=== PATIENT | male | born 1990 | race Caucasian/White ===

== ENCOUNTER → 2023-06-29 13:23 | Outpatient (REF) | payer OTHER, SELFPAY | LOC: PAVMRI 13:23 | PROVIDERS: ATTENDING PHYSICIAN Specialist; FAMILY PHYSICIAN Family Medicine | DX: M25.561 Pain in right knee (principal); M25.562 Pain in left knee | CPT/HCPCS: 73721 ==

== ENCOUNTER 2024-09-19 09:41 | Inpatient (IN) | payer OTHER, SELFPAY ==
[2024-09-16] VITALS (8 sets, daily range): BP systolic 134–155; BP diastolic 90–101; BMI 31.7; BMI 31.0
[2024-09-16 14:08] LABS: Hematocrit 45.1 % (39.0-52.0); Hemoglobin 15.3 g/dL (13.0-18.0); Mean Corp Hgb Conc. 33.9 g/dL (33.0-37.0); Mean Corpuscular Volume 86.1 fL (80.0-94.0); Nucleated Red Blood Cells % 0 % (-); Platelet Count 266 10^3/uL (130-400); Red Cell Dist. Width 12.1 % (11.5-14.5)
[2024-09-16 14:31] LABS: ALT (SGPT) 38 U/L (0-50); AST (SGOT) 26 U/L (17-59); Albumin 4.7 g/dl (3.5-5.0); Alkaline Phosphatase 57 U/L (38-126); Blood Urea Nitrogen 13 mg/dl (9-20); Calcium 9.8 mg/dl (8.4-10.2); Carbon Dioxide 24 mmol/L (22-30); Chloride 107 mmol/L (98-107); Glucose 106 mg/dl (70-99); Potassium 4.7 mmol/L (3.5-5.1); Sodium 138 mmol/L (135-145); Total Protein 7.6 g/dl (6.3-8.2); eGFR > 60.00
--- NOTE | 2024-09-16 16:05 | ED.GENMED ---
History of Present Illness
General
Chief Complaint: Fainting/Passed Out
Time Seen by Provider: 09/16/24 16:05
History of Present Illness
History of Present Illness:
TIME OF INITIAL EVALUATION
- 4:10 PM
REVIEW OF OLD RECORDS
- The patient has a history of migraines, high blood pressure, and GERD
Note:
CHIEF COMPLAINT(S)
- Right-sided weakness and buckling.
HISTORY OF PRESENT ILLNESS
The patient is a 34-year-old male who presented with sudden onset of right-sided weakness and buckling. The event occurred while climbing stairs at home around 1:00 PM. The patient described his whole right side as 'buckling,' causing him to fall,
while his left side remained stable. This episode lasted less than a minute. Upon resolution of the buckling, he immediately called 911, and emergency services arrived within five minutes.
The patient reported feeling unwell for the past week and a half, with symptoms including severe neck pain, feelings of confusion, shortness of breath, sensations of lightheadedness, and three significant migraines accompanied by blurred vision and
numbness. The patient mentioned feeling like he was 'not in my body' and has experienced constant, severe headaches.
The patient denied any prior episodes of weakness or buckling. During evaluation, he demonstrated appropriate strength and coordination, with intact peripheral vision and no focal neurological deficits detected.
ADDITIONAL HISTORY OBTAINED FROM SOURCES OTHER THAN THE PATIENT
Per family members, the patient has been experiencing symptoms but has not exhibited confusion or inappropriate behavior. They noted that he has been complaining more frequently about these symptoms recently. EMS conducted an on-site evaluation and
noted a right bundle branch block on the EKG, although this was deemed unrelated to the current symptoms by the attending physician.
PHYSICAL EXAM
General: Alert, no acute distress.
Skin: Warm, dry.
Head: Normocephalic, atraumatic.
Neck: Supple, trachea midline.
Eye, Ears, Nose, Mouth, and Throat: Oral mucosa moist.
Cardiovascular: Normal peripheral perfusion, no edema.
Respiratory: Respirations are non-labored.
Gastrointestinal: Abdomen nondistended.
Back: Normal range of motion, normal alignment.
Musculoskeletal: Normal range of motion, normal strength.
Neurological: Alert and oriented to person, place, time, and situation, no focal neurological deficit observed. NIHSS equals 0, no field cuts, no sensory deficits, excellent strength in all extremities
Psychiatric: Cooperative, appropriate mood and affect.
PROBLEM LIST
Acute Problems:
- Right-sided weakness and buckling
- Severe neck pain
- Migraine with blurred vision and numbness
- Episodes of lightheadedness and shortness of breath
PLAN
- Obtain a non-contrast CT scan of the brain and a CT angiogram of the head and neck to evaluate blood vessels for any abnormalities.
- Consult neurology for further evaluation and input on the patients symptoms.
- Monitor for any changes in symptoms, particularly regarding neurological status.
DIFFERENTIAL DIAGNOSIS
The Differential Diagnosis includes, in no particular order and is not limited to:
1. Transient Ischemic Attack (TIA)
2. Stroke
3. Migraine with aura
4. Seizure disorder
5. Multiple sclerosis
6. Vestibular disorders
7. Hyperventilation syndrome
8. Cardiac arrhythmias
9. Peripheral neuropathy
10. Conversion disorder
RADIOLOGY
- CT head shows no acute abnormality
EKG
- Sinus 78, normal axis, right bundle branch block with no old to compare
LABS
- CBC, chemistries unremarkable
UPDATE
-SUMMARY OF ENCOUNTER
The patient, a 34-year-old male, presented to the emergency department with a sudden onset of right-sided weakness and buckling while climbing stairs. Emergency medical services were called, and an on-site evaluation revealed a right bundle branch
block unrelated to the current symptoms. Upon evaluation in the ER, the patient reported feeling unwell for the past week and a half, with symptoms including severe neck pain, confusion, shortness of breath, lightheadedness, and migraines with
blurred vision and numbness. A non-contrast CT scan of the brain showed no signs of bleeding or ischemia, making a stroke unlikely. The evaluating physician consulted with a neurologist, Dr. Reza, who recommended a hospital admission for further
evaluation, including an MRI and possibly an EEG to rule out seizure activity, given the patient�s family history of seizures.
DISPOSITION
Admit.
ASSESSMENT
The patient has a sudden onset of right-sided weakness possibly related to transient ischemic events, seizure activity, or complex migraines. A comprehensive neurological workup is warranted.
MANAGEMENT OF THE PATIENTS CARE WAS DISCUSSED WITH
Dr. Kumar, neurologist.
PLAN
Admit the patient to the hospital for overnight observation. Arrange for an MRI and a neurology consult to evaluate and rule out potential neurological causes such as seizures or complex migraines. Consider conducting an EEG if necessary.
MEDICAL DECISION MAKING
- Number and Complexity of Problems Addressed: Acute right-sided weakness, potential neurological event.
- Data:
Category 1: A non-contrast CT scan was performed and showed no acute hemorrhage or ischemia.
Category 2: Consultation with an independent historian revealed a family history of seizures.
Category 3: Neurologist consultation for further evaluation.
- Risk: Admission advised for further investigation. MRI and possible EEG to be conducted for thorough neurological assessment.
DIAGNOSIS
1. Right-sided weakness, unspecified (ICD-10 R53.1).
2. Possible seizure (ICD-10 R56.9).
Past History
Past History
ED Past Medical History: GERD and HTN
Social History
Tobacco: Non-smoker
Alcohol: Occasional
Drug: None
Phy Exam
Physical Exam
Physical Exam:
See HPI
Course
Orders/Labs/Results
Orders:
Orders
09/16/24 13:48
Electrocardiogram (*1) Urgent
Reason for Study: Chest Pain
EKG- Treatment ONCE
09/16/24 13:55
Complete Blood Count/With Diff Urgent
Comprehensive Metabolic Panel Urgent
09/16/24 16:17
CT Head & Neck Angio W/wo IV Urgent
Comment:
Reason For Exam: resolved R weakness
09/16/24 16:24
D-Dimer Urgent
Abnormal Lab Results
09/16/24
13:55
Glucose 106 H mg/dl
(70-99)
09/16/24 13:55
09/16/24 13:55
Vital Signs
Initial and Last Documented VS:
Initial Vital Signs
Temp Pulse Resp BP Pulse Ox
37.1 C 84 20 140/100 97
09/16/24 13:43 09/16/24 13:43 09/16/24 13:43 09/16/24 13:43 09/16/24 13:43
Last Documented Vital Signs
Temp Pulse Resp BP Pulse Ox
37.1 C 83 14 155/92 96
09/16/24 13:43 09/16/24 18:45 09/16/24 18:45 09/16/24 18:08 09/16/24 18:45
*Pulse Oximetry
SaO2: 97
Oxygen Mode of Delivery: Room air
Patient hypoxic: no
*Critical Care Note
Total Time (30-74mins, 75-104mins- exclusive of procedures): Not Applicable
ED Attending Note
-
Portions of this chart may have been created with voice recognition software.� Occasional wrong word or��sound alike� substitutions may have occurred due to the inherent limitations of voice recognition software.
Discharge Plan
Departure
Patient Disposition: Admit
Date of Disposition: 09/16/24
Time of Disposition: 19:02
Presentation/result/management discussed w/ accepting MD/DO: Hospitalist
Patient with high blood pressure during this ER visit?: Yes
Discharge Problem:
Unilateral weakness
Prescriptions:
No Action
Ascorbic Acid/Ascorbate Sodium [Vitamin C 500 Mg Tablet Chew] 500 MG Tab.Chew
500 mg PO DAILY
acetaminophen [Tylenol Extra Strength] 500 MG tablet
1,000 mg PO Q6HPRN PRN (Reason: fever/ pain)
naproxen sodium [Aleve] 220 MG tablet
220 mg PO PRN PRN (Reason: pain)
metoprolol tartrate 50 MG tablet
50 mg PO QPM
methylprednisolone [Medrol (Gabriele)] 4 MG tablets,dose pack
4 tab PO . DIRECT
Patient Comments:
Taper pack started 03/14/2021
cholecalciferol (vitamin D3) [Vitamin D3] 1,000 UNIT capsule
1,000 unit PO DAILY
pantoprazole 40 MG tablet,delayed release (DR/EC)
40 mg PO DAILY Qty: 30 0RF
Referrals:
Puneet Moore DO [Family Provider, Family Practice]
Interventions
Interventions:
*Risk Screen - Suicide Last Done: 09/16/24 13:43
*General Assessment Last Done: 09/16/24 13:43
*Neglect/Abuse Screening Last Done: 09/16/24 13:43
*ED- Fall Risk Assessment Last Done: 09/16/24 16:35
*ED COVID-19 Vaccine History Last Done: 09/16/24 16:35
ED- Neurological Assessment Last Done: 09/16/24 16:37
ED- Cardiac Assessment Last Done: 09/16/24 16:37
Discharge Date and Time
Print Language: SLOVAK
[2024-09-16 16:41] LABS: D-Dimer < 0.27 ug/mlFEU (0.00-0.50)
--- NOTE | 2024-09-16 19:05 | HPS.HSE ---
Family Physician
-
Family Physician: Puneet Moore
Chief Complaint
-
Right-sided weakness
History of Present Illness
This 34-year-old male with past medical history of: Hypertension presenting to the emergency department with sudden onset of right-sided weakness.
Patient reports symptoms began around 1 PM where he suddenly lost ability and his right side and had buckling of the lower right side causing him to fall despite noticing normal strength and stability on the left. He said this lasted about 45
seconds and he called 911 immediately upon resolution. On arrival patient was alert and oriented but reported not feeling well. Complained of severe neck pain, confusion and some shortness of breath lightheadedness as well as migraines, blurred
vision and numbness.
Patient reports history of migraines reports that he is having increasing frequency of migraines over the last few months with the last episode of migraines about 1 week ago. He states that his typical migraines associated with blurry vision and
then development of headache and then numbness and tingling in his upper and lower extremities. Usually his migraines are aborted with NSAIDs. He states that his presentation today was atypical of migraines and he has not been having headache but
reports still feeling lightheaded which he attributes to feeling dehydrated. He has not had any meals today.
Denies any prior surgery or interval episodes. During the initial examination he demonstrated appropriate strength and coordination, normal patient and without focal logical deficits.
In the emergency department he was afebrile, blood pressure was 150/90 with a pulse of 83 and was satting 98% on room air.
CBC was completely unremarkable, electrolytes BUN/creatinine also normal. LFTs were normal.
D-dimer is negative. ECG shows a normal sinus rhythm at rate of 76. 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 CT of the head was negative for any acute
stroke.
Medical History
Past Medical History
Past Medical History: Reports GERD and HTN
Past Surgical History: Reports None
Social History
Tobacco: Non-smoker
Alcohol: Occasional
Drug: None
Family History
Family History: Hypertension
Allergies / Home Medications
Allergies reflects when Allergies were last updated in [facility].
Home Medications with original date entered in [facility]
Allergy/Medication List:
Allergies
Allergy/AdvReac Type Severity Reaction Status Date / Time
No Known Allergies Allergy Verified 09/16/24 13:47
Home Medications
Curcumin 1 cap PO DAILY 09/16/24
ibuprofen 200 mg tablet (Advil) 400 mg PO Q8HPRN PRN mild pain 09/16/24
metoprolol succinate 50 mg tablet,extended release 24 hr (Toprol XL) 50 mg PO DAILY 09/16/24
omega 2-gtd-fme-fish oil 1,000 mg (120 mg-180 mg) capsule (Fish Oil) 1 cap PO DAILY 09/16/24
Review of Systems
-
Constitutional: Reports No Symptoms
EENT: Reports No Symptoms
Respiratory: Reports No Symptoms
Cardiac: Reports No Symptoms
Abdomen/GI: Reports No Symptoms
: Reports No Symptoms
Musculoskeletal: Reports No Symptoms
Skin: Reports No Symptoms
Neurological: Reports Other (See HPI)
Endocrine: Reports No Symptoms
Hematologic/Lymphatic: Reports No Symptoms
Psych: Reports No Symptoms
Physical Exam
Vital Signs
Vital Signs
Temp Pulse Resp BP Pulse Ox
98.7 F 83 14 155/92 96
09/16/24 13:43 09/16/24 18:45 09/16/24 18:45 09/16/24 18:08 09/16/24 18:45
Physical Exam
General: Well Developed, Well Nourished and No Apparent Distress
HEENT: NormoCephalic, Moist mucous membranes and Atraumatic
Respiratory: Clear
Cardiac: S1/S2 and Regular Rhythm; No Murmur or Rub
GI: Soft, Non Tender, Non Distended and Normal Bowel Sounds; No Organomegaly
Rectal: Deferred by Provider
Musculoskeletal: No Clubbing, No Cyanosis and No Edema
Skin: No Rash
Neuro: Nonfocal/grossly intact
Laboratory Results
-
09/16/24 13:55
09/16/24 13:55
Laboratory Results
Total Bilirubin 0.7 mg/dl (0.2-1.3) 09/16/24 13:55
AST 26 U/L (17-59) 09/16/24 13:55
ALT 38 U/L (0-50) 09/16/24 13:55
Alkaline Phosphatase 57 U/L (38-126) 09/16/24 13:55
Data Reviewed
-
CT Scan: Report Reviewed by me
Medical Tests (Nuc Med, Echo, EKG etc): Image Personally Visualized and interpreted
Lab Data: Labs Reviewed by me
Old Records: Reviewed
Impression/Plan
-
IMPRESSION:
34-year-old with past medical history significant for hypertension and GERD who presents to the Emergency Department for very brief episode of right-sided weakness affecting the of the upper and lower extremities lasting for about 45 minutes and
associated with migrainous headache and sensation of confusion. Suspect possibility of seizure with Brian's paralysis versus migraine or stroke. Less likely TIA.
PLAN:
1. Possible Seizure/Migrainous stroke
- admit to tele observation
- check inflammatory markers, tsh, a1c and cardiovascular panel
- EEG
- MRI
- neurochecks q 6 hours for now
- neurology consultation
DVT PPX - SCDs
Code status - full code
[2024-09-16] MEDS: NSS 250 IV (22:07)
[2024-09-17 03:16] VITALS: BP 126/82
[2024-09-17 07:24] LABS: Hematocrit 43.2 % (39.0-52.0); Hemoglobin 14.4 g/dL (13.0-18.0); Mean Corp Hgb Conc. 33.3 g/dL (33.0-37.0); Mean Corpuscular Volume 85.7 fL (80.0-94.0); Platelet Count 258 10^3/uL (130-400); Red Cell Dist. Width 12.2 % (11.5-14.5)
[2024-09-17 07:28] LABS: Blood Urea Nitrogen 12 mg/dl (9-20); Calcium 9.4 mg/dl (8.4-10.2); Carbon Dioxide 25 mmol/L (22-30); Chloride 105 mmol/L (98-107); Estimated Creatinine Clearance 122 ml/min; Glucose 94 mg/dl (70-99); HDL Cholesterol 33 mg/dl; LDL Cholesterol, Calculated 160 mg/dl; Magnesium 2.1 mg/dl (1.6-2.3); Potassium 4.3 mmol/L (3.5-5.1); Sodium 137 mmol/L (135-145); Very Low Density Lipoprotein 51 mg/dl (0-30); eGFR > 60.00
[2024-09-17 07:51] LABS: TSH 2.16 uIU/ml (0.47-4.68)
[2024-09-17] MEDS: TOPROL XL 50 MG PO (09:37)
[2024-09-17 11:00] VITALS: BP 149/97
[2024-09-17 13:00] VITALS: BP 150/87
--- NOTE | 2024-09-17 13:07 | W.PN.HOSP.TC ---
Today's Communication/Plan
-
ativan prn
mri
neuro consult
Assessment / Plan
Assessment / Plan
Physical Exam
General: Well Developed, Well Nourished and No Apparent Distress
HEENT: NormoCephalic, Moist mucous membranes and Atraumatic
Respiratory: Clear
Cardiac: S1/S2 and Regular Rhythm; No Murmur or Rub
GI: Soft, Non Tender, Non Distended and Normal Bowel Sounds; No Organomegaly
Rectal: Deferred by Provider
Musculoskeletal: No Clubbing, No Cyanosis and No Edema
Skin: No Rash
Neuro: Nonfocal/grossly intact
34-year-old with past medical history significant for hypertension and GERD who presents to the Emergency Department for very brief episode of right-sided weakness affecting the of the upper and lower extremities lasting for about 45 minutes and
associated with migrainous headache and sensation of confusion. Suspect possibility of Brian's paralysis versus migraine or stroke.
PLAN:
#Migrainous stroke v Anxiety
#Right sided weakness, resolved
- admit to tele observation
- check inflammatory markers, tsh, a1c and cardiovascular panel
- MRI
- neurochecks q 6 hours for now
- neurology consultation
#Anxiety
-one time .5mg ativan
DVT PPX - SCDs
Code status - full code
Anticipated Discharge: 24 - 48 hours
Subjective/Interval History
-
Date of Service: September 17, 2024
slightly dizzy in the afternoon although acknowledges anxiety; right sided weakness resolved
Objective Data
-
Labs:
Laboratory Results
09/17/24
05:37
WBC 8.3
Hgb 14.4
Hct 43.2
Plt Count 258
Sodium 137
Potassium 4.3
Chloride 105
Carbon Dioxide 25
BUN 12
Creatinine 1.1
Glucose 94
Calcium 9.4
Vital Signs:
Vital Signs
Temp Pulse Resp BP Pulse Ox
97.6 F 80 16 139/88 96
09/17/24 07:00 09/17/24 09:37 09/17/24 07:00 09/17/24 09:37 09/17/24 07:00
I&O
09/16/24 09/17/24 09/18/24
06:59 06:59 06:59
Intake Total 0 / 0
Balance 0 / 0
Review of Systems
-
History Source: Patient
All other systems: Not reviewed unless documented
Data Reviewed
-
CT Scan: Report Reviewed by me
Labs: Labs Reviewed by me
--- NOTE | 2024-09-17 13:17 | PTCARENOTE ---
Pt. is with c/o dizziness/lightheadedness for about 40 min now he reports, while sitting in bed. B/p 150/87 hr 82. Pt. also reports he is slightly anxious. Dr. Armstrong made aware. New orders to follow.
[2024-09-17] MEDS: ATIVAN 0.5 MG PO (13:38)
[2024-09-17] MEDS: MOTRIN 400 MG PO (13:38)
[2024-09-17 15:00] VITALS: BP 141/83
--- NOTE | 2024-09-17 15:09 | CM ---
Addendum entered by Hetal Pepe 09/18/24 08:10:
insurance is non active, message left with [facility]
Original Note:
Patient see at bedside on 4 . Patient stated that he has moved back in with his parents in a split level home and that his fiance has moved in with another roommate. Patient has no DME and his PCP is Dr. Moore, he uses the [facility] in [place].
Patient indicated that he is not sure if his insurance is still in effect due to loss of his job. Patient provided number for [facility] [id number], CM called to admissions and they indicated that they would call back to clarify insurance
coverage. CM will call to [facility] if patient insurance not in place. CM will conttinue to follow for discharge planning needs.
Plan; home with no needs; pending medical treatment plan
[2024-09-17] MEDS: LOW STRENGTH ASPIRIN 324 MG PO (16:32)
[2024-09-17] MEDS: PLAVIX 300 MG PO (16:32)
[2024-09-17] MEDS: LIPITOR 40 MG PO (17:14)
[2024-09-17] MEDS: KLONOPIN 0.5 MG PO (17:47)
--- NOTE | 2024-09-17 18:10 | CON.NEURO ---
Neuro Assessment/Plan
Assessment
MRI brain images reviewed with patient, on DWI and ADC, 2 dots of stroke left high frontal, MCA/MINE SUPERVISOR junction
CTA imgs rev'd, minimal atherosclerosis, no LVO, no aneurysm. Right carotid tortuous, left MINE SUPERVISOR supplied by small left PCOM
HDL 51, LDL 160
34 years man, description is of simple partial seizure, likely symptomatic to tiny strokes seen on MRI. no clear vascular etiology for this stroke.
HTN well controlled, no history of severe longstanding HTN ot explain tortuous carotids
high LDL but minimal atherosclerosis
stroke in young workup would start with
YANIRA rule out (septic) emboli source, PFO. also blood cultures
ESR, CRP, folate, B12
CT chest/abd/pelvis r/o emboli to lung/liver/spleen
ultrasound r/o DVT
needs more outpatient Afib screening
Consultation
Order
Date of Consultation: 09/17/24
Requesting Provider:
Reason for Consult:
Subjective/Objective
Subjective Data
Date of Service: September 17, 2024
from h&p:
This 34-year-old male with past medical history of: Hypertension presenting to the emergency department with sudden onset of right-sided weakness.
Patient reports symptoms began around 1 PM where he suddenly lost ability and his right side and had buckling of the lower right side causing him to fall despite noticing normal strength and stability on the left. He said this lasted about 45
seconds and he called 911 immediately upon resolution. On arrival patient was alert and oriented but reported not feeling well. Complained of severe neck pain, confusion and some shortness of breath lightheadedness as well as migraines, blurred
vision and numbness.
Patient reports history of migraines reports that he is having increasing frequency of migraines over the last few months with the last episode of migraines about 1 week ago. He states that his typical migraines associated with blurry vision and
then development of headache and then numbness and tingling in his upper and lower extremities. Usually his migraines are aborted with NSAIDs. He states that his presentation today was atypical of migraines and he has not been having headache but
reports still feeling lightheaded which he attributes to feeling dehydrated. He has not had any meals today.
he tells me that he had 45 seconds of right sided weakness, numbness, and shaking. He was going up the stairs and fell. presently asymptomatic.
Objective Data
Vital Signs
Temp Pulse Resp BP Pulse Ox
36.9 C 90 16 141/83 96
09/17/24 15:00 09/17/24 15:00 09/17/24 15:00 09/17/24 15:00 09/17/24 15:00
Lab Results
09/17/24 05:37
09/17/24 05:37
Sodium 137 mmol/L (135-145) 09/17/24 05:37
Potassium 4.3 mmol/L (3.5-5.1) 09/17/24 05:37
BUN 12 mg/dl (9-20) 09/17/24 05:37
Glucose 94 mg/dl (70-99) 09/17/24 05:37
Calcium 9.4 mg/dl (8.4-10.2) 09/17/24 05:37
LDL Cholesterol, Calc 160 mg/dl 09/17/24 05:37
Patient Allergies
No Known Allergies Allergy (Verified 09/16/24 13:47)
Physical Exam
-
AAOx3, speech clear, language intact
VFF, EOMI, face symmetric
full strength b/l UE/LE
sensation intact to temp/vib
FNF intact
Medications
-
Active Medications
Generic Name Dose Route Start Last Admin
Trade Name Freq PRN Reason Stop Dose Admin
Atorvastatin Calcium 40 mg 09/17/24 18:00 09/17/24 17:14
Atorvastatin (Lipitor) 40 Mg Tablet PO 10/15/24 17:59 40 mg
QPM KIMBERLY Administration
Bisacodyl 10 mg 09/16/24 21:01
Bisacodyl 10 Mg Rectal Suppository RECTAL 10/14/24 21:00
[id number] PRN
constipation
Clonazepam 0.5 mg 09/17/24 17:26 09/17/24 17:47
Clonazepam 0.5 Mg Tablet PO 10/15/24 19:59 0.5 mg
BID PRN Administration
anxiety
Ibuprofen 400 mg 09/16/24 21:01 09/17/24 13:38
Ibuprofen 400 Mg Tablet PO 10/14/24 21:00 400 mg
Q6HPRN PRN Administration
mild pain
Metoprolol Succinate 50 mg 09/17/24 08:00 09/17/24 09:37
Metoprolol 50 Mg Extended Release Tablet PO 10/15/24 07:59 50 mg
DAILY KIMBERLY Administration
Ondansetron HCl 4 mg 09/16/24 21:01
Ondansetron 4 Mg/2 Ml Vial IV 10/14/24 21:00
Q6HPRN PRN
nausea and vomiting
Polyethylene Glycol 17 grams 09/16/24 21:01
Polyethylene Glycol Powder 17 Grams Packet PO 10/14/24 21:00
DAILYPRN PRN
constipation
Senna/Docusate Sodium 1 tablet 09/16/24 21:01
Docusate W/Senna (Janet-Colace) Tablet PO 10/14/24 21:00
BIDPRN PRN
constipation
Home Medications
�Medication �Instructions �Recorded
Curcumin 1 cap PO DAILY 09/16/24
ibuprofen 200 mg tablet (Advil) 400 mg PO Q8HPRN PRN mild pain 09/16/24
metoprolol succinate 50 mg 50 mg PO DAILY 09/16/24
tablet,extended release 24 hr
(Toprol XL)
omega 6-zws-iql-fish oil 1,000 mg 1 cap PO DAILY 09/16/24
(120 mg-180 mg) capsule (Fish Oil)
clonazepam 0.5 mg tablet 0.5 mg DAILY PRN anxiety 09/17/24
[2024-09-17 18:50] LABS: C-Reactive Protein < 5.00 mg/L (0.0-10.00)
[2024-09-17 19:25] LABS: Ferritin 120.0 ng/ml (17.9-464.0)
[2024-09-17 19:34] VITALS: BP 137/84
[2024-09-17 19:56] LABS: Folate 9.8 ng/ml (2.76-20); Vitamin B12 307 pg/ml (239-931)
[2024-09-17 23:19] VITALS: BP 123/73
[2024-09-18 03:30] VITALS: BP 113/71
[2024-09-18 07:08] VITALS: BP 133/76
[2024-09-18 08:01] LABS: Hematocrit 44.5 % (39.0-52.0); Hemoglobin 14.8 g/dL (13.0-18.0); Mean Corp Hgb Conc. 33.3 g/dL (33.0-37.0); Mean Corpuscular Volume 85.9 fL (80.0-94.0); Platelet Count 258 10^3/uL (130-400); Red Cell Dist. Width 12.2 % (11.5-14.5)
[2024-09-18 08:30] LABS: ALT (SGPT) 32 U/L (0-50); AST (SGOT) 22 U/L (17-59); Albumin 4.2 g/dl (3.5-5.0); Alkaline Phosphatase 49 U/L (38-126); Blood Urea Nitrogen 9 mg/dl (9-20); Calcium 9.1 mg/dl (8.4-10.2); Carbon Dioxide 24 mmol/L (22-30); Chloride 106 mmol/L (98-107); Estimated Creatinine Clearance 122 ml/min; Glucose 97 mg/dl (70-99); Potassium 4.4 mmol/L (3.5-5.1); Sodium 138 mmol/L (135-145); Total Protein 6.7 g/dl (6.3-8.2); eGFR > 60.00
[2024-09-18] MEDS: TOPROL XL 50 MG PO (08:36)
[2024-09-18] MEDS: OMNIPAQUE 50 ML PO (08:40)
--- NOTE | 2024-09-18 08:56 | CON.CAR ---
Consultation
Consultation Request
Date/Time Consultation Requested: 09/17/2024 1700
Date/Time Consultation Performed: 0900
Requesting Provider: Dr. Barrios
Performing Provider: Dr. Julien
Reason for Consultation: CVA evaluate for cardiac source of emboli YANIRA requested
Medical History
-
History of Present Illness:
34-year-old male with a history of hypertension and history of migraines who presented with right sided weakness. MRI shows CVA
.
Patient reportedly had increased frequency of migraines over the last couple months. Typical migraine includes headache, blurry vision and tingling in extremities managed with nitrates. Day of presentation was different than usual migraine.
No history of GI issues or swallowing issues no prior history of problems with anesthesia. No loose teeth or dentures. He however he does have 2 broken teeth which are areas that had previous root canal.
No prior cardiac history.
He has been exercising and does the bike for 45 minutes generally feels well with this he thinks he is a little more tired with activity over the last month. When he is out in the heat mowing the lawn he stops and rests a couple times. No
orthopnea lower extremity edema no lung disease no chest pain
Family history is notable for father having DVTs and factor V Leiden. Patient reports being tested for factor V Leiden in the past. Sounds as if he just had the blood test and did not have full hematology evaluation
.
Head and neck CTA 09/06/2024
NECK CTA:
1. Mild hypoplasia of the cervical segment of the right vertebral artery.
2. Severe tortuosity of the mid cervical segment of the right ICA.
3. Moderate right-sided facet joint arthrosis at C3/C4.
HEAD CTA:
1. No CT evidence for acute intracranial hemorrhage or transcortical infarct.
2. Mild diffuse cerebral and cerebellar volume loss.
3. 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
4. 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
5. 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
.
MRI 09/17/2024
IMPRESSION:
1. TINY ACUTE ISCHEMIC INFARCTS in the SUPERIOR LEFT PARIETAL LOBE.
2. Mild cerebellar volume loss.
3. 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
Past Medical History
Past Medical History: Other
Social History
Tobacco: Non-Smoker
Family History
Family History: Reviewed & Not Pertinent
Allergies / Home Medications
Allergy/AdvReac Type Severity Reaction Status Date / Time
No Known Allergies Allergy Verified 09/16/24 13:47
�Medication �Instructions �Recorded �Confirmed �Type
Curcumin 1 cap PO DAILY 09/16/24 09/16/24 History
ibuprofen 200 mg tablet (Advil) 400 mg PO Q8HPRN PRN mild pain 09/16/24 09/16/24 History
metoprolol succinate 50 mg 50 mg PO DAILY 09/16/24 09/16/24 History
tablet,extended release 24 hr
(Toprol XL)
omega 0-dhm-fhg-fish oil 1,000 mg 1 cap PO DAILY 09/16/24 09/16/24 History
(120 mg-180 mg) capsule (Fish Oil)
clonazepam 0.5 mg tablet 0.5 mg DAILY PRN anxiety 09/17/24 09/17/24 History
Review of Systems
-
All other systems: Negative unless noted
Physical Exam
Vital Signs
Temp Pulse Resp BP Pulse Ox
97.8 F 76 14 133/76 96
09/18/24 07:08 09/18/24 07:08 09/18/24 07:08 09/18/24 07:08 09/18/24 07:08
Lab Results
09/18/24 06:05
09/18/24 06:05
Physical Exam
General: Well Developed and Well Nourished
HEENT: Normocephalic and Anicteric
Respiratory: Other (Clear without wheezes rales or rhonchi)
Cardiac: Regular Rhythm (No murmur rub or gallop)
GI: Soft, Non Tender, Non Distended, Normal Bowel Sounds, Organomegaly (None) and Other
Musculoskeletal: No Clubbing, No Cyanosis and No Edema
Skin: Warm
Neuro: Awake, Alert and Oriented
Psych: Calm
Impression / Plan
-
CVA.MRI yesterday with tiny acute ischemic infarct involving the superior left parietal lobe
- Etiology unclear
- Management directed by neurology and hospitalist
- Continue to assess for cause of stroke. Reasonable to assess for cardiac causes.
- Plan for YANIRA on Thursday
- Continue to monitor on telemetry
- Based on results of YANIRA and monitoring we will determine whether additional long-term outpatient cardiac monitoring is required
.
Family history of clotting disorder. Father with factor V Leiden. Patient reportedly tested negative but did not have full hematology evaluation.
-Consider hypercoag eval
.
? Decreased endurance over the last month. Gets tired mowing the lawn unsure if it is because of the warm weather.
-Echocardiogram.
.
Hypertension. Stable continue current therapy. If there is any concern regarding vasospasm could consider changing metoprolol to calcium channel rowan.
.
Migraines management directed by neurology.
Data Reviewed
-
EKG: Report Reviewed by me
Medical Tests (Nuc Med, Echo etc): Report Reviewed by me
Labs: Labs Reviewed by me
[2024-09-18] MEDS: KLONOPIN 0.5 MG PO (10:41)
[2024-09-18 11:20] VITALS: BP 139/87
--- NOTE | 2024-09-18 12:54 | W.PN.HOSP.TC ---
Today's Communication/Plan
-
YANIRA tomorrow
DAPT
Statin
HSQ
F/u cultures
LE Dopplers
Assessment / Plan
Assessment / Plan
Physical Exam
General: Well Developed, Well Nourished and No Apparent Distress
HEENT: NormoCephalic, Moist mucous membranes and Atraumatic
Respiratory: Clear
Cardiac: S1/S2 and Regular Rhythm; No Murmur or Rub
GI: Soft, Non Tender, Non Distended and Normal Bowel Sounds; No Organomegaly
Rectal: Deferred by Provider
Musculoskeletal: No Clubbing, No Cyanosis and No Edema
Skin: No Rash
Neuro: Nonfocal/grossly intact
34-year-old with past medical history significant for hypertension and GERD who presents to the Emergency Department for very brief episode of right-sided weakness affecting the of the upper and lower extremities lasting for about 45 minutes and
associated with migrainous headache and sensation of confusion. Suspect possibility of Brian's paralysis versus migraine or stroke.
PLAN:
#Small CVAs
#Right sided weakness, resolved
- admit to tele observation
- neurology consultation
-YANIRA rule out (septic) emboli source, PFO - tuesday 09/19
- F/u blood cultures
- TSH, ESR, CRP, folate, B12 - WNL
- CT chest/abd/pelvis r/o emboli to lung/liver/spleen - no acute abnormalities
-ultrasound r/o DVT
-outpatient Holter nae be needed
-Started on statin
#Father has had hx of factor IV Leiden
- patient states he had testing done probably 2 years ago and believes its negative
-f/u le dopplers outpt
-F/u heme outpt
#Hyperlipidemia
-statin
#Anxiety
DVT PPX -HSQ
Code status - full code
Total time spent on today's encounter was 51 minutes which included time spent in counseling the patient/family regarding diagnosis and treatment plan as listed above, goals of care, and symptom management. Case was discussed with nursing staff,
specialists, and care coordinators/case management. All labs and imaging personally reviewed by me. Remainder the time spent in detailed review of previous records, lab data, imaging, and other medical provider documentation.
Anticipated Discharge: 24 - 48 hours
Subjective/Interval History
-
Date of Service: September 18, 2024
no acute events overnight
Objective Data
-
Labs:
Laboratory Results
09/18/24
06:05
WBC 8.0
Hgb 14.8
Hct 44.5
Plt Count 258
Sodium 138
Potassium 4.4
Chloride 106
Carbon Dioxide 24
BUN 9
Creatinine 1.1
Glucose 97
Calcium 9.1
Total Bilirubin 0.7
AST 22
ALT 32
Alkaline Phosphatase 49
Vital Signs:
Vital Signs
Temp Pulse Resp BP Pulse Ox
97.5 F 82 16 139/87 96
09/18/24 11:20 09/18/24 11:20 09/18/24 11:20 09/18/24 11:20 09/18/24 11:20
I&O
09/17/24 09/18/24 09/19/24
06:59 06:59 06:59
Intake Total 0 / 0 1800 / 1800
Balance 0 / 0 1800 / 1800
Review of Systems
-
History Source: Patient
All other systems: Not reviewed unless documented
Data Reviewed
-
CT Scan: Report Reviewed by me
Labs: Labs Reviewed by me
[2024-09-18] MEDS: PLAVIX 75 MG PO (13:56)
[2024-09-18] MEDS: ASPIR LOW (ENTERIC COATED) 81 MG PO (13:56)
[2024-09-18 15:00] VITALS: BP 129/87
[2024-09-18] MEDS: LIPITOR 40 MG PO (16:34)
[2024-09-18] MEDS: HEPARIN 5000 UNITS SC ×2 (16:35→23:14)
[2024-09-18 19:43] VITALS: BP 122/77
[2024-09-18 23:19] VITALS: BP 140/71
[2024-09-19 03:12] VITALS: BP 124/73
[2024-09-19 06:57] LABS: Hematocrit 44.3 % (39.0-52.0); Hemoglobin 14.6 g/dL (13.0-18.0); Mean Corp Hgb Conc. 33.0 g/dL (33.0-37.0); Mean Corpuscular Volume 87.0 fL (80.0-94.0); Platelet Count 264 10^3/uL (130-400); Red Cell Dist. Width 12.0 % (11.5-14.5)
[2024-09-19 07:18] LABS: ALT (SGPT) 32 U/L (0-50); AST (SGOT) 21 U/L (17-59); Albumin 4.1 g/dl (3.5-5.0); Alkaline Phosphatase 51 U/L (38-126); Blood Urea Nitrogen 15 mg/dl (9-20); Calcium 9.4 mg/dl (8.4-10.2); Carbon Dioxide 27 mmol/L (22-30); Chloride 106 mmol/L (98-107); Estimated Creatinine Clearance 112 ml/min; Glucose 99 mg/dl (70-99); Potassium 4.6 mmol/L (3.5-5.1); Sodium 138 mmol/L (135-145); Total Protein 6.7 g/dl (6.3-8.2); eGFR > 60.00
[2024-09-19 08:07] VITALS: BP 135/83
--- NOTE | 2024-09-19 08:56 | W.PN.HOSP.TC ---
Today's Communication/Plan
-
Await YANIRA
Assessment / Plan
Assessment / Plan
Gen-AAOx3, NAD, obese
HEENT-NC, AT, anicteric, clear oral mm
Neck-supple
CV-reg, no M, +S1/S2
Lungs-clear B/L
Abd-soft, NT, ND
Ext-no edema
Musculoskeletal-no cyanosis, clubbing
Skin-warm and dry
Neuro-grossly non-focal
Psych-calm, cooperative
Acute ischemic cerebral infarcts -MRI notes tiny acute ischemic infarcts in the superior left parietal lobe, accounting for transient right sided weakness prior to presentation. No further neurologic deficits. Patient feels back to baseline.
Etiology of strokes unclear. Rule out PFO. Await YANIRA today.
Metabolic syndrome likely contributing factor to stroke including obesity, hypertension, hyperlipidemia, hypertriglyceridemia.
Father with diagnosis of factor V Leiden and 1 DVT over the age of 60. I would not expect factor V Leiden to explain this patient's stroke, this is a low risk hypercoagulable condition, usually associated with DVT and not arterial events such as
strokes.
Referred to hematology after discharge.
Migraine headaches -only on [id number] Excedrin. Recent onset of more frequent headaches, did have 3 headaches in the past week prior to presentation.
Hyperlipidemia -started on atorvastatin this admission.
Total cholesterol 244, LDL 160, triglycerides 256. HDL 33.
Anxiety
Obesity due to excess calories
DVT PPX -HSQ
Full code
Anticipated Discharge: Within 24 hours
Subjective/Interval History
-
Date of Service: September 19, 2024
Patient seen and examined. No complaints.
Objective Data
-
Labs:
Laboratory Results
09/19/24
06:05
WBC 8.7
Hgb 14.6
Hct 44.3
Plt Count 264
Sodium 138
Potassium 4.6
Chloride 106
Carbon Dioxide 27
BUN 15
Creatinine 1.2
Glucose 99
Calcium 9.4
Total Bilirubin 1.0
AST 21
ALT 32
Alkaline Phosphatase 51
Vital Signs:
Vital Signs
Temp Pulse Resp BP Pulse Ox
98 F 74 16 135/83 97
09/19/24 08:07 09/19/24 08:07 09/19/24 08:07 09/19/24 08:07 09/19/24 08:07
I&O
09/18/24 09/19/24 09/20/24
06:59 06:59 06:59
Intake Total 1800 / 1800 1250 / 1250
Balance 1800 / 1800 1250 / 1250
Review of Systems
-
History Source: Patient
All other systems: Reviewed and negative
[2024-09-19 09:10] VITALS: BP 131/97; BP 155/94; PULSE 83; O2SAT 97
--- NOTE | 2024-09-19 09:19 | W.PN.NEURO.1 ---
Addendum entered and electronically signed by Charles Anderson MD 09/19/24 13:16:
Studies reviewed.
I have personally examined the patient. I reviewed and agree with the BARBER STYLIST's Note.
My addenda:
Awake, alert, interactive. No acute distress.
Speech intact.
Follows 2-step requests w/o difficulty. No tremor.
Extra-ocular movements grossly intact.
Facial movements full and symmetric. Hearing intact to normal conversational volume.
Normal UE movements bilaterally.
Neck: full ROM.
Chest: no dyspnea
Heart: no JVD
Ext: (-) Clubbing, (-) Cyanosis, (-) Edema
IMPRESSIONS/RECOMMENDATIONS:
Abrupt onset of right sided weakness with abnormal MRI of brain
Unclear if this represents an underlying coagulopathy or start of CADASIL
In 6 weeks check hypercoagulability evaluation as well as genetic testing for early onset stroke
YANIRA was unrevealing for an etiology for symptoms
Continue aspirin and clopidogrel followed by aspirin monotherapy, presumably lifelong
Start vitamin B12 replacement with 1000 mcg daily
Patient should follow-up with his usual outpatient neurologist
D/W patient / family / nursing
All questions answered.
Will continue to follow patient.
Original Note:
Documented by User: Junie Saleem NP 09/19/24 11:16
Today's Communication / Plan
-
-YANIRA as planned
-hypercoagulability workup and CADASIL testing outpatient
-current LDL 160, agree with statin therapy for goal <70
-Vitamin B12 low, start supplementation
-aspirin 81 mg and clopidogrel 75 mg for 21 days followed by monotherapy with aspirin
-neurochecks and NIHSS per unit guidelines
-goal normotension and normoglycemia
-DVT prophylaxis
-education material to be provided
-long-term outpatient cardiac monitoring
-should follow up with usual neurologist outpatient
Neuro Assessment/Plan
Assessment
The patient is a 34-year-old male who presented to [facility] on 09/16/2024 with sudden onset of right-sided weakness and buckling.
MRI brain images reviewed with patient, on DWI and ADC, 2 dots of stroke left high frontal, MCA/INSTRUMENT TESTER junction
CTA imgs rev'd, minimal atherosclerosis, no LVO, no aneurysm. Right carotid tortuous, left INSTRUMENT TESTER supplied by small left PCOM
Cholesterol 244, LDL 160, B12 307, CRP <5, Folate 9.8
Plan
Impressions:
I. Abrupt onset of right sided weakness in the setting of acute ischemic infarct in the left parietal lobe etiology unclear at this time
II. Migraine with aura
-YANIRA as planned
-hypercoagulability workup and CADASIL testing outpatient
-current LDL 160, agree with statin therapy for goal <70
-Vitamin B12 low, start supplementation
-aspirin 81 mg and clopidogrel 75 mg for 21 days followed by monotherapy with aspirin
-neurochecks and NIHSS per unit guidelines
-goal normotension and normoglycemia
-DVT prophylaxis
-education material to be provided
-long-term outpatient cardiac monitoring
-should follow up with usual neurologist outpatient
All questions encouraged and answered, plan of care discussed with Dr. Anderson, hospitalist, patient
Subjective/Objective
Subjective Data
Date of Service: September 19, 2024
Feels stressed. Denies residual weakness. States he has a history of migraines with aura, numbness in hands and mouth then headache. Takes Excedrin for migraine. No family history of stroke.
Objective Data
Vital Signs
Temp Pulse Resp BP Pulse Ox
98 F 74 16 135/83 97
09/19/24 08:07 09/19/24 08:07 09/19/24 08:07 09/19/24 08:07 09/19/24 08:07
Lab Results
09/19/24 06:05
09/19/24 06:05
Sodium 138 mmol/L (135-145) 09/19/24 06:05
Potassium 4.6 mmol/L (3.5-5.1) 09/19/24 06:05
BUN 15 mg/dl (9-20) 09/19/24 06:05
Glucose 99 mg/dl (70-99) 09/19/24 06:05
Calcium 9.4 mg/dl (8.4-10.2) 09/19/24 06:05
LDL Cholesterol, Calc 160 mg/dl 09/17/24 05:37
Vitamin B12 307 pg/ml (239-931) 09/17/24 05:37
Patient Allergies
No Known Allergies Allergy (Verified 09/16/24 13:47)
Physical Exam
-
General: No Apparent Distress, Comfortable and Appears Stated Age
HEENT: Normocephalic, Atraumatic and Anicteric
Neck: Full Range of Motion
Respiratory: No Dyspnea
Cardiac: No JVD
GI: Non-distended
Skin: Unremarkable
Extremities: No Clubbing, No Cyanosis and No Edema
Psych: Unremarkable
Extended Neurological Exam
Mood & Affect: Mood Unremarkable
Attention Span & Concentration: Awake, Alert, Interactive and No Difficulty with 2 Step Request
Memory: Unremarkable
Tremor: Hand Tremor Absent and Head Tremor Absent
Involuntary Movement: None
Speech: Quality Unremarkable, Quantity Unremarkable and Rate of Production Unremarkable
Cranial Nerve VII: Facial Symmetry: Normal Facial Symmetry
Cranial Nerve VIII: Hearing: Unremarkable Hearing to Normal Conversational Volume
Muscle Strength, Overall: Full Throughout
Coordination: Reaches for Objects without Difficulty
Data Reviewed
-
CT Head: Report Reviewed and Image Reviewed
MRI Head: Report Reviewed and Image Reviewed
Labs: Report Reviewed
Lipid Profile: Report Reviewed
HgbA1C: Report Reviewed
Reviewed with: Physician and Patient
Old Records: Summarized

Documented by User: Charles Anderson MD 09/19/24 13:14
Past History
Past History
ED Past Medical History: GERD, HTN and Other (Abnormal MRI of brain)
Social History
Tobacco: Non-smoker
Alcohol: Occasional
Drug: None
Medications
-
Medications:
Generic Name Dose Route Start Last Admin
Trade Name Freq PRN Reason Stop Dose Admin
Aspirin 81 mg 09/18/24 14:00 09/19/24 09:26
Aspirin 81 Mg (Enteric Coated) Tablet PO 10/16/24 13:59 81 mg
DAILY KIMBERLY Administration
Atorvastatin Calcium 40 mg 09/17/24 18:00 09/18/24 16:34
Atorvastatin (Lipitor) 40 Mg Tablet PO 10/15/24 17:59 40 mg
QPM KIMBERLY Administration
Bisacodyl 10 mg 09/16/24 21:01
Bisacodyl 10 Mg Rectal Suppository RECTAL 10/14/24 21:00
[id number] PRN
constipation
Clonazepam 0.5 mg 09/17/24 17:26 09/19/24 09:25
Clonazepam 0.5 Mg Tablet PO 10/15/24 19:59 0.5 mg
BID PRN Administration
anxiety
Clopidogrel Bisulfate 75 mg 09/18/24 14:00 09/19/24 09:25
Clopidogrel 75 Mg Tablet PO 10/16/24 13:59 75 mg
DAILY KIMBERLY Administration
Cyanocobalamin 1,000 mcg 09/19/24 10:00 09/19/24 11:40
Cyanocobalamin 1,000 Mcg Tablet PO 10/17/24 09:59 1,000 mcg
DAILY KIMBERLY Administration
Heparin Sodium 5,000 units 09/18/24 16:00 09/19/24 09:25
Heparin 5,000 Units/Ml 1 Ml Vial SC 10/16/24 15:59 5,000 units
Q8 KIMBERLY Administration
Sodium Chloride 1,000 mls @ 120 mls/hr 09/19/24 10:00 09/19/24 11:40
0.45%Nacl IV 09/19/24 18:19 1,000 mls
.Q8H20M KIMBERLY Administration
Ibuprofen 400 mg 09/16/24 21:01 09/17/24 13:38
Ibuprofen 400 Mg Tablet PO 10/14/24 21:00 400 mg
Q6HPRN PRN Administration
mild pain
Metoprolol Succinate 50 mg 09/17/24 08:00 09/19/24 09:25
Metoprolol 50 Mg Extended Release Tablet PO 10/15/24 07:59 50 mg
DAILY KIMBERLY Administration
Ondansetron HCl 4 mg 09/16/24 21:01
Ondansetron 4 Mg/2 Ml Vial IV 10/14/24 21:00
Q6HPRN PRN
nausea and vomiting
Polyethylene Glycol 17 grams 09/16/24 21:01
Polyethylene Glycol Powder 17 Grams Packet PO 10/14/24 21:00
DAILYPRN PRN
constipation
Senna/Docusate Sodium 1 tablet 09/16/24 21:01
Docusate W/Senna (Janet-Colace) Tablet PO 10/14/24 21:00
BIDPRN PRN
constipation
[2024-09-19] MEDS: TOPROL XL 50 MG PO (09:25)
[2024-09-19] MEDS: HEPARIN 5000 UNITS SC (09:25)
[2024-09-19] MEDS: PLAVIX 75 MG PO (09:25)
[2024-09-19] MEDS: KLONOPIN 0.5 MG PO (09:25)
[2024-09-19] MEDS: ASPIR LOW (ENTERIC COATED) 81 MG PO (09:26)
--- NOTE | 2024-09-19 09:40 | W.PN.CD ---
Addendum entered and electronically signed by Travis Sarmiento MD 09/19/24 11:29:
I saw and examined the patient.
The CLINICAL ESTHETICIAN's note was reviewed and I agree with the note.
Comment:
34-year-old male with a history of hypertension and migraines who presented with right sided weakness. MRI shows tiny acute ischemic infarcts in the superior left parietal lobe. Patient feels well and has no residual deficits or cardiovascular
complaints.
Physical exam with RRR, no murmurs, clear lungs, no lower extremity edema.
YANIRA 09/19/2024: LVEF 55-60%, no significant valvular disease, no TY thrombus, PFO with evidence of shunt by color-flow Doppler. Mildly positive bubble study.
DVT study negative bilaterally
For his stroke, we will mail him an ambulatory monitor to screen for any arrhythmias. He will follow-up in the office with Dr. Julien in 4-6 weeks to review monitor findings and discuss PFO further. He should also see hematology for family
history of factor V Leyden.
He should continue statin, DAPT for 3 months, and metoprolol. We can consider changing antihypertensives as an outpatient.
Original Note:
Today's Communication / Plan
-
YANIRA
Full echocardiogram
Impression / Plan
-
I/P: 34M with HTN and migraines presented to the ER with right-sided weakness. He was found to have ischemic infarcts.
Outpatient ore tester: None
CVA
- MRI with tiny acute ischemic infarcts involving the superior left parietal lobe
- Etiology unclear, no DVTs on US and an unremarkable chest/abdomen/pelvis CT
- No residual effects
- YANIRA today
- Follow telemetry
- Based on results of YANIRA and monitoring we will determine whether additional long-term outpatient cardiac monitoring is required
Family history of clotting disorder
-Father with factor V Leiden. Patient reportedly tested negative but did not have full hematology evaluation.
-Consider hypercoag eval
Decreased exercise intolerance
- Started 1 month ago
- Gets tired mowing the lawn unsure if it is because of the warm weather.
- Echocardiogram today
Hypertension
- Stable continue current therapy
- If there is any concern regarding vasospasm, could consider changing metoprolol to calcium channel rowan
Hypercholesterolemia
- TC 244, LDL 160, HDL 33, TG 256
- High intensity statin recommended in the setting of CVA
RBBB, chronicity unknown
Migraines, management per neurology
Physical Exam
Vital Signs/Labs
Vital Signs
Temp Pulse Resp BP Pulse Ox
98 F 74 16 135/83 97
09/19/24 08:07 09/19/24 09:25 09/19/24 08:07 09/19/24 09:25 09/19/24 08:07
09/19/24 06:05
09/19/24 06:05
Magnesium 2.1 mg/dl (1.6-2.3) 09/17/24 05:37
Triglycerides 256 mg/dl (10-149) H 09/17/24 05:37
LDL Cholesterol, Calc 160 mg/dl 09/17/24 05:37
VLDL Cholesterol, Calc 51 mg/dl (0-30) H 09/17/24 05:37
HDL Cholesterol 33 mg/dl 09/17/24 05:37
TSH 2.16 uIU/ml (0.47-4.68) 09/17/24 05:37
Physical Exam
Constitutional: No acute distress and Comfortable
EENT: Anicteric and Moist mucous membranes
Cardiovascular: Rhythm & rate is regular and Pedal edema is absent
Respiratory: Respiratory effort normal and Lungs clear to auscul.
GI: Soft, Distention absent, Flat, Non tender and Normal bowel sounds
Neuro/Psych: AO x 3
Other: Skin (Warm and dry)
Data Reviewed
-
Date of Service: September 19, 2024
EKG: Report Reviewed by me
Labs: Labs Reviewed by me
Old Records: Reviewed
--- NOTE | 2024-09-19 11:08 | W.PN.UPDATE ---
Update Note
Progress Note Update
Reviewed YANIRA findings with pt and cardiology rounding team:
YANIRA September 19 2024:
Normal left ventricular size, thickness, and systolic function. Left ventricular ejection fraction is 55-60%.
No significant valve abnormalities.
No left atrial appendage thrombus. No spontaneous echo contrast seen in the left atrial appendage.
Patent foramen ovale with evidence of shunt by color flow Doppler. Mildly positive agitated saline contrast bubble study.
No prior study available for comparison.
--- NOTE | 2024-09-19 11:26 | CM ---
Addendum entered by Graciela Sherman RN 09/19/24 12:18:
Mom Brigid will drive him home. Pt agrees with dc today.
Original Note:
Admission clarified pts insurance not active.
Spoke with Marychuy from [facility] .
Cardiology involved.
PLAN Home no anticipated needs
[2024-09-19 11:33] VITALS: BP 110/70
[2024-09-19] MEDS: VITAMIN B-12 1000 MCG PO (11:40)
[2024-09-19] MEDS: 0.45%NACL 1000 IV (11:40)
--- NOTE | 2024-09-19 12:10 | W.DS.TRANS ---
DC Summary - [employer]
-
Discharge Instructions:
Discharge Diagnosis/Procedures Acute stroke
Procedure: YANIRA 09/19/2024
Diet Low Cholesterol,Low Fat
Activity As tolerated
Driving Restrictions As prior to admission
Bathing Restrictions None
Others Tests A heart monitor has been arranged for you. It
will be mailed to your home from the cardiology
office.
Instructions:
Stand-Alone Forms:
Changes to Home Medications: No
Discharge Medications:
DC Medications w/original date entered in [facility]
metoprolol succinate 50 mg tablet,extended release 24 hr (Toprol XL) 50 mg PO DAILY 09/16/24
clonazepam 0.5 mg tablet 0.5 mg DAILY PRN anxiety 09/17/24
aspirin 81 mg tablet,delayed release 81 mg PO DAILY #0 tabs 09/19/24
atorvastatin 40 mg tablet 40 mg PO QPM #30 tabs 09/19/24
clopidogrel 75 mg tablet 75 mg PO DAILY #18 tabs 09/19/24
cyanocobalamin (vitamin B-12) 1,000 mcg tablet (Vitamin B-12) 1,000 mcg PO DAILY #30 tabs 09/19/24
Home Medication Changes
Pending Results: No
[2024-09-19 12:59] VITALS: BP 133/79; PULSE 77; O2SAT 96
--- NOTE | 2024-09-19 13:11 | PTOTSP ---
Pt presents to OT with good UE AROM, strength, sensation and coordination. Vision and cognition grossly WFL. Pt currently at mod I/I level with self care, transfers and functional mobility in room without AD. Reports mild dizziness during mobility
but no loss of noted. No further skilled OT indicated at this time
== END 2024-09-19 14:22 | disposition home or self-care (01) | DRG 65 ==
LOC: 4 EAST ACU 09:41
PROVIDERS: Internal Medicine; Nuclear Medicine Nuclear Cardiology; ADMITTING PHYSICIAN Internal Medicine; ATTENDING PHYSICIAN Hospitalist; CONSULT PHYSICIAN Internal Medicine Cardiovascular Disease; CONSULT PHYSICIAN Psychiatry & Neurology Clinical Neurophysiology; EMERGENCY PHYSICIAN Emergency Medicine; FAMILY PHYSICIAN Family Medicine
PROC: B24BZZ4 Ultrasonography of Heart with Aorta, Transesophageal (ICD-10-PCS; 2024-09-19)
DX: I63.9 Cerebral infarction, unspecified (principal); G81.91 Hemiplegia, unspecified affecting right dominant side; Q21.12 Patent foramen ovale; K21.9 Gastro-esophageal reflux disease without esophagitis; G43.909 Migraine, unspecified, not intractable, without status migrainosus; E78.5 Hyperlipidemia, unspecified; E66.09 Other obesity due to excess calories; M47.812 Spondylosis without myelopathy or radiculopathy, cervical region; E78.00 Pure hypercholesterolemia, unspecified; I45.10 Unspecified right bundle-branch block; E88.810 Metabolic syndrome; E78.1 Pure hyperglyceridemia; F41.9 Anxiety disorder, unspecified; I10 Essential (primary) hypertension; W10.9XXA Fall (on) (from) unspecified stairs and steps, initial encounter; Y93.9 Activity, unspecified; Y92.9 Unspecified place or not applicable; Z83.2 Family history of diseases of the blood and blood-forming organs and certain disorders involving the immune mechanism; Z82.0 Family history of epilepsy and other diseases of the nervous system; Z68.31 Body mass index [BMI] 31.0-31.9, adult
CPT/HCPCS: 70496; 70498; 70551; 71270; 74178; 80048; 80053; 80061; 82607; 82728; 82746; 83735; 84443; 85025; 85027; 85379; 85652; 86140; 87040; 93005; 93312; 93320; 93325; 93970; 97116; 97162; 97166; 99285; Q9967

== ENCOUNTER 2025-01-10 22:56 | Inpatient (IN) | payer SELFPAY ==
[2025-01-10] MEDS: CARDIZEM 10 MG IV (21:42)
[2025-01-10] MEDS: CARDIZEM 125 IV (21:42)
[2025-01-10 21:53] LABS: Hematocrit 45.7 % (39.0-52.0); Hemoglobin 15.8 g/dL (13.0-18.0); Mean Corp Hgb Conc. 34.6 g/dL (33.0-37.0); Mean Corpuscular Volume 81.9 fL (80.0-94.0); Nucleated Red Blood Cells % 0 % (-); Platelet Count 314 10^3/uL (130-400); Red Cell Dist. Width 12.0 % (11.5-14.5)
--- NOTE | 2025-01-10 21:53 | ED.GENMED ---
History of Present Illness
General
Chief Complaint: Cardiac Symptoms
Source: patient and records
Exam Limitations: none
Time Seen by Provider: 01/10/25 21:34
Nursing documentation reviewed up to this point in time: agreed with
History of Present Illness
History of Present Illness:
34-year-old male presents with palpitations, onset just prior to arrival feels that his right side of his face is numb, no headache no nausea no vomiting feels a beating in his chest, admitted 3 weeks ago with right arm weakness found a left-sided
stroke, seen by cardiology, ultimately discharged on aspirin Plavix statin beta-rowan no history of arrhythmia apparently,
Past History
Past History
ED Past Medical History: GERD, HTN and Other (Abnormal MRI of brain); Negative Arrthythmia
Social History
Tobacco: Non-smoker
Alcohol: Occasional
Drug: None
Personal: Single
Living: with family
Employment: Employed
Phy Exam
Physical Exam
Physical Exam:
Physical Exam
General: no apparent distress, not acutely ill
Neck: No facial palsy clear speech
Heart: Tachycardic
Lungs: no acute respiratory distress. clear bilaterally
Abdomen: Nontender
Neuro: alert and oriented. no focal neurological deficits
Skin: no rash
Psychiatric: well kept. interactive and cooperative
Extremities: no edema.
Scores
[id number] Score for Afib Stroke Risk
Age in Years (65=0, 65-74=1, >/=75=2): <65
Sex (Female=+1): Male
Congestive Heart Failure History (Yes=+1): No
Hypertension History (Yes=+1): No
Stroke/TIA/Thromboembolism History (Yes=+2): Yes
Vascular Disease History (Yes=+1): No
Diabetes Mellitus (Yes=+1): No
Score: 2
Anticoagulation Recommendations: Recommend anticoagulation (as validated in nonvalvular fib)
Course
Orders/Labs/Results
Orders:
Orders
01/10/25 21:24
ECG [Electrocardiogram (*1)] Urgent
Reason for Study: Tachycardia
EKG- Treatment ONCE
01/10/25 21:37
Diltiazem HCl [Cardizem] 10 mg IV NOW STA
01/10/25 21:45
Diltiazem 125 mg/125 ml Nss [Cardizem] 125 mg in 125 ml IV PER PROTOCOL
Initial dose in mg/hr, then titrate:: 5
Titrate to keep:: Heart rate 80-100 bpm
Titrate by mg/hr:: 5 mg/hr
Frequency of titrations (minutes):: 15
Maximum dose in mg/hr:: 15
01/10/25 21:46
Complete Blood Count/With Diff Urgent
Comprehensive Metabolic Panel Urgent
Magnesium Urgent
TSH Urgent
01/10/25 21:54
CT Head W/o Iv Contrast Urgent
Comment:
Reason For Exam: Right facial numbness recent stroke
01/10/25 22:16
Admit/Transfer Patient As Directed
Co-Sign Provider:
Level of Care: Inpatient admission
Assign to:: IVU
Physician / Group: Marita
Diagnosis: Rapid atrial fibrillation
Reason for Hospitalization: rapid atrial fibrillation
Expected length of stay greater than two midnights?: Yes
ELOS- Estimated Length of Stay in days: 2
I certify the patient meets the requirements for IP care: Yes
PRN Pain Medication Management As Directed
May give lesser potent ordered pain med per pt: Yes
preference::
Protocol:: Medication orders for pain may be administered in a
manner that supports deferring to patient preference
when the pt is:
- Requesting an ordered lesser potent pain medication.
Least to most potent pain medications are defined
as: acetaminophen < NSAID < tramadol < opioids
(morphine, oxycodone, hydromorphone).
- Requesting a lesser dose of the same medication IF
ORDERED.
- Requesting a less intrusive route of administration
if both routes are prescribed by the provider (PO <
IV).
01/10/25 22:17
Code Status As Directed
Resuscitation Status: Full Code
01/10/25 22:20
Heparin 4,000 units IV NOW STA
Pharmacy Request to Place See Dose Instructions PO NOW STA
Discontinue all Active Warfarin orders?: Yes
01/10/25 22:21
PTT Urgent
Comment: Obtain baseline before beginning heparin infusion if not already collected
Nursing to Place Non Medication Order As Directed
Physician Order: PTT 6 hours after initial start of Heparin infusion
01/10/25 22:30
Heparin 29440 Units/250 ml 25,000 units in 250 ml IV PER PROTOCOL
Weight to be used for heparin protocol in kilograms (kg):: 113
Protocol:: Cardiac Tx/Acute Coronary
PTT Goal Range to be used:: PTT 73 to 111 seconds
Order type:: Initial
INITIAL Infusion Dose (UNITS/KG/hr) & then follow protocol:: 12 units/kg/hr
Infusion Dose in UNITS/hr & then follow protocol (UNITS/hr):: 1,000
INFUSION RATE in mL/hr & then follow protocol (mL/hr):: 10
PTT less than or equal to 64 seconds:: Increase rate by 200 units/hr (+ 2 mL/hr)
PTT 64.1 to 72.9 seconds:: Increase rate by 100 units/hr (+ 1 mL/hr)
PTT 73 to 111 seconds:: Target Range. No change in rate.
PTT 111.1 to 130.9 seconds:: Decrease rate by 100 units/hr (- 1 mL/hr)
PTT 131 to 199.9 seconds:: HOLD for 1 hr. Then decrease rate by 200 units/hr (- 2 mL/hr)
PTT greater than or equal to 200 seconds:: HOLD for 2 hrs & Notify Provider. Then decrease by 200 units/hr (-
2 mL/hr)
Lab follow-up:: Each change, PTT q6h until 2 consecutive are therapeutic. Then PTT
daily.
01/10/25 23:[address] See Dose Instructions IV DIRECTED
Abnormal Lab Results
01/10/25
21:46
WBC 11.0 H 10^3/uL
(4.8-10.8)
Absolute Lymphs (auto) 4.7 H 10^3/uL
(1.2-3.4)
Absolute Monos (auto) 1.1 H 10^3/uL
(0.1-0.6)
Monocytes % 10.1 H %
(1.7-9.3)
Glucose 103 H mg/dl
(70-99)
Calcium 10.3 H mg/dl
(8.4-10.2)
Albumin 5.1 H g/dl
(3.5-5.0)
01/10/25 21:46
01/10/25 21:46
Vital Signs
Initial and Last Documented VS:
Initial Vital Signs
Pulse Resp Pulse Ox
84 15 98
01/10/25 21:28 01/10/25 21:28 01/10/25 21:28
Last Documented Vital Signs
Pulse Resp BP Pulse Ox
173 18 123/91 100
01/10/25 21:49 01/10/25 21:49 01/10/25 21:42 01/10/25 22:07
MDM/Problems Addressed
Differential Diagnosis Includes:
AF a flutter SVT
MDM/Problems Addressed:
Tacky arrhythmia recent stroke
Chronic conditions affecting care: Neurological disorder
Acute Exacerbation and/or Progression of Chronic Illness: Neurological disorder
*Pulse Oximetry
SaO2: 100
Oxygen Mode of Delivery: Room air
Patient hypoxic: no
*EKG
Interpreted by ED Provider?: Yes
Interpretation: abnormal
Comparison EKG: changes noted
Heart Rate: 174
Rate: tachycardiac
Rhythm: a-fib and atrial flutter
Ischemia: non-specific ST changes
*Window Shade [employer]er Interpretation
Rate: tachycardiac
Interpretation: abnormal
Heart Rate: 174
Rhythm: atrial flutter
*Critical Care Note
Total Time (30-74mins, 75-104mins- exclusive of procedures): 32
Data Reviewed
Review of Other/Old Records Reveals: Labs, Records, Radiology Studies, Testing, Progress Notes and Discharge Summary
Source: patient, records, previous radiology exam and previous hospital records
Prescriptions/Medications Considered But Not Given:
Eliquis
Further Testing Considered But Not Given:
EEG
Update Note
Update Note:
Update patient presents with a tachyarrhythmia suspect his AF or a flutter, recent MRI proven stroke with no residual he is on aspirin and Plavix plan to be rate control, patient has a facial numbness that he is hyperventilating family requesting a
CAT scan which is not unreasonable had been in contact with hospitalist and cardiology will start with diltiazem consideration for amiodarone if blood pressure tolerates, will start on anticoagulation
ED Attending Note
-
Portions of this chart may have been created with voice recognition software.� Occasional wrong word or��sound alike� substitutions may have occurred due to the inherent limitations of voice recognition software.
Discharge Plan
Departure
Patient Disposition: Admit
Date of Disposition: 01/10/25
Time of Disposition: 22:23
Admit to: Telemetry
Presentation/result/management discussed w/ accepting MD/DO: Hospitalist
Patient with high blood pressure during this ER visit?: No
Condition: Fair
Discharge Problem:
Atrial fibrillation with RVR
Prescriptions:
No Action
metoprolol succinate [Toprol XL] 50 mg Tablet Extended Release 24 Hr
50 mg PO DAILY
clonazepam 0.5 mg Tablet
0.5 mg DAILY PRN (Reason: anxiety)
atorvastatin 40 mg Tablet
40 mg PO QPM Qty: 30 0RF
cyanocobalamin (vitamin B-12) [Vitamin B-12] 1,000 mcg Tablet
1,000 mcg PO DAILY Qty: 30 0RF
clopidogrel 75 mg Tablet
75 mg PO DAILY Qty: 18 0RF
aspirin 81 mg Tablet,Delayed Release (Dr/Ec)
81 mg PO DAILY Qty: 0 0RF
Interventions
Interventions:
*Risk Screen - Suicide Last Done: 01/10/25 21:28
*General Assessment Last Done: 01/10/25 21:28
*Neglect/Abuse Screening Last Done: 01/10/25 21:28
*ED COVID-19 Vaccine History Last Done: 01/10/25 21:28
*ED Influenza Vaccine History Last Done: 01/10/25 21:28
ED- Pulmonary Assessment Last Done: 01/10/25 21:50
ED- Cardiac Assessment Last Done: 01/10/25 21:50
Discharge Date and Time
Print Language: NEPALI
[2025-01-10 22:00] VITALS: BP 98/85
--- NOTE | 2025-01-10 22:04 | HPS.HSE ---
Family Physician
-
Family Physician:
Chief Complaint
-
Palpitation
History of Present Illness
This is a 34-year-old with past medical history significant for multiple small acute ischemic infarcts in the left parietal lobe in August who is now on dual antiplatelet therapy presents to the emergency room with palpitations.
Patient reported that he was just sitting down relaxing when all of a sudden he noticed that his heart was racing and he felt palpitations. He felt some shortness of breath. When he got up he did not feel lightheaded or dizzy but he noticed some
numbness to the right side of his face and also throughout his body. He denied any nausea. He has no vomiting. He denies having any pain in his chest.
Patient reported that he had a similar episode about 5 days ago when he was cooking but did not last as long. He said he has also felt brief episodes of flutter/palpitations when he was younger but this otherwise has been asymptomatic.
In the emergency department the patient was afebrile, blood pressure was 120/90 with a pulse rate of 173 was satting 100% on room air. ECG shows supraventricular tachycardia at rate of 174 with a right bundle branch block.
CBC is unremarkable stop electrolytes BUN and creatinine are normal. Head CT is normal.
Medical History
Past Medical History
Past Medical History: Reports GERD and HTN
Past Surgical History: Reports None
Social History
Tobacco: Non-smoker
Alcohol: Occasional
Drug: None
Family History
Family History: Hypertension
Allergies / Home Medications
Allergies reflects when Allergies were last updated in [facility].
Home Medications with original date entered in [facility]
Allergy/Medication List:
Allergies
Allergy/AdvReac Type Severity Reaction Status Date / Time
No Known Allergies Allergy Verified 09/16/24 13:47
Home Medications
Curcumin 1 cap PO DAILY 09/16/24
ibuprofen 200 mg tablet (Advil) 400 mg PO Q8HPRN PRN mild pain 09/16/24
metoprolol succinate 50 mg tablet,extended release 24 hr (Toprol XL) 50 mg PO DAILY 09/16/24
omega 6-gwt-buf-fish oil 1,000 mg (120 mg-180 mg) capsule (Fish Oil) 1 cap PO DAILY 09/16/24
Review of Systems
-
Constitutional: Reports No Symptoms
EENT: Reports No Symptoms
Respiratory: Reports No Symptoms
Cardiac: Reports Palpitations
Abdomen/GI: Reports No Symptoms
: Reports No Symptoms
Musculoskeletal: Reports No Symptoms
Skin: Reports No Symptoms
Neurological: Reports No Symptoms
Endocrine: Reports No Symptoms
Hematologic/Lymphatic: Reports No Symptoms
Psych: Reports No Symptoms
Physical Exam
Vital Signs
Vital Signs
Pulse Resp BP Pulse Ox
173 18 123/91 100
01/10/25 21:49 01/10/25 21:49 01/10/25 21:42 01/10/25 21:50
Physical Exam
General: Well Developed, Well Nourished and No Apparent Distress
HEENT: NormoCephalic, Moist mucous membranes and Atraumatic
Respiratory: Clear
Cardiac: S1/S2 and Tachycardia; No Murmur or Rub
GI: Soft, Non Tender, Non Distended and Normal Bowel Sounds; No Organomegaly
Rectal: Deferred by Provider
Musculoskeletal: No Clubbing, No Cyanosis and No Edema
Skin: No Rash
Neuro: AO x 3 and Nonfocal/grossly intact
Psych: Calm
Laboratory Results
-
01/10/25 21:46
Data Reviewed
-
Medical Tests (Nuc Med, Echo, EKG etc): Image Personally Visualized and interpreted
Lab Data: Labs Reviewed by me
Old Records: Reviewed
Impression/Plan
-
IMPRESSION:
34-year-old with past medical history significant for hypertension and GERD and recent diagnosis of CVA with small acute ischemic infarcts in the superior left parietal lobe presents to ED with SVT. Rates 170s regular with RBBB. Suspect Aflutter
vs fib.
PLAN:
1. New onset SVT - Suspect Aflutter vs fib
- admit to IVU
- started on cardizem
- start heparin gtt,
- hold plavix
- recent echo in last 6 months with PFO, pending further eval, will repeat one now
- tsh pending
- npo after midnight incase YANIRA for cardioversion
- cardiology consult.
2. CVA
- Given he likely had cryptogenic stroke from AFIB, will anticoagulate now and stop antiplatelet
- continue statin
- neurology consult
DVT PPX - on heparin sq
Code status - Full code
[2025-01-10 22:08] LABS: ALT (SGPT) 40 U/L (0-50); AST (SGOT) 29 U/L (17-59); Albumin 5.1 g/dl (3.5-5.0); Alkaline Phosphatase 60 U/L (38-126); Blood Urea Nitrogen 16 mg/dl (9-20); Calcium 10.3 mg/dl (8.4-10.2); Carbon Dioxide 23 mmol/L (22-30); Chloride 104 mmol/L (98-107); Glucose 103 mg/dl (70-99); Magnesium 2.1 mg/dl (1.6-2.3); Potassium 3.8 mmol/L (3.5-5.1); Sodium 135 mmol/L (135-145); Total Protein 8.2 g/dl (6.3-8.2); eGFR > 60.00
[2025-01-10 22:16] VITALS: BP 120/88
[2025-01-10 22:38] LABS: TSH 4.20 uIU/ml (0.47-4.68)
[2025-01-10] MEDS: HEPARIN 4000 UNITS IV (22:57)
[2025-01-10] MEDS: HEPARIN 25000 UNITS/250 ML IV (22:58)
[2025-01-10 23:00] VITALS: BP 134/82
[2025-01-10 23:19] LABS: APTT 26.6 Sec (23.4-35.0)
[2025-01-11] VITALS (11 sets, daily range): BP systolic 114–154; BP diastolic 69–95; BMI 30.6
--- NOTE | 2025-01-11 00:30 | PTCARENOTE ---
rec'd pt from ER as IVU overflow on heparin and cardizem gtts, see flowsheets. pt oriented x3, afib on monitor w/ BBB. afebrile. on RA, admits to feeling palpitations and SOB at times. NPO for possible YANIRA in morning. mom at bedside, updated on plan
of care. call georges in reach.
--- NOTE | 2025-01-11 03:12 | PTCARENOTE ---
HR 60-90, cardizem gtt off at this time. remains in afib. heparin gtt continues, labs due at 0500. call georges in reach.
[2025-01-11 05:22] LABS: APTT 45.2 Sec (23.4-35.0)
[2025-01-11 05:34] LABS: Blood Urea Nitrogen 15 mg/dl (9-20); Calcium 9.4 mg/dl (8.4-10.2); Carbon Dioxide 27 mmol/L (22-30); Chloride 107 mmol/L (98-107); Estimated Creatinine Clearance 121 ml/min; Glucose 104 mg/dl (70-99); Magnesium 2.1 mg/dl (1.6-2.3); Potassium 3.9 mmol/L (3.5-5.1); Sodium 136 mmol/L (135-145); eGFR > 60.00
--- NOTE | 2025-01-11 08:13 | W.PN.HOSP.TC ---
Today's Communication/Plan
-
see A/P
Assessment / Plan
Assessment / Plan
HPI: 34-year-old M with past medical history significant for multiple small acute ischemic infarcts in the left parietal lobe in August who is now on dual antiplatelet therapy, hypertension and GERD; presented to the emergency room with recurrent
palpitations.
A/P:
# New onset SVT - Suspect Aflutter vs fib
spontaneously converted to NSR
off Cardizem
Cont SENIOR BOILER OPERATOR Toprol
started heparin gtt,
hold plavix
Cont ASA
recent echo in last 6 months with PFO, pending further eval,
Check repeat echo
TSH WNL at 4.2
cardiology consult.
# Recent stroke with finding of PFO
continue statin
neurology consult
DVT PPX - heparin gtt for now
Code status - Full code
DW RN
Anticipated Discharge: > 48 hours
Subjective/Interval History
-
Date of Service: January 11, 2025
Objective Data
-
Labs:
Laboratory Results
01/10/25 01/10/25 01/11/25
21:46 23:01 04:55
WBC 11.0 H
Hgb 15.8
Hct 45.7
Plt Count 314
APTT 26.6 45.2 H
Sodium 135 136
Potassium 3.8 3.9
Chloride 104 107
Carbon Dioxide 23 27
BUN 16 15
Creatinine 1.1 1.1
Glucose 103 H 104 H
Calcium 10.3 H 9.4
Total Bilirubin 0.6
AST 29
ALT 40
Alkaline Phosphatase 60
01/11/25
11:30
WBC
Hgb
Hct
Plt Count
APTT Pending
Sodium
Potassium
Chloride
Carbon Dioxide
BUN
Creatinine
Glucose
Calcium
Total Bilirubin
AST
ALT
Alkaline Phosphatase
Vital Signs:
Vital Signs
Temp Pulse Resp BP Pulse Ox
37.1 C 78 8 114/69 97
01/11/25 07:10 01/11/25 06:00 01/11/25 06:00 01/11/25 04:00 01/11/25 06:00
I&O
01/10/25 01/11/25 01/12/25
06:59 06:59 06:59
Intake Total
Balance
Review of Systems
-
History Source: Patient
All other systems: Reviewed and negative
Cardiac: Denies Chest Pain
Physical Exam
-
General: Well Developed, Well Nourished, No Apparent Distress, Comfortable and Conversant; Negative Respiratory Distress
HEENT: Normocephalic, Atraumatic, Nose Appears Normal and Ears Appear Normal; Negative Oxygen
Respiratory: Clear to Auscultation and Non Labored Respirations; Negative Accessory Resp Muscle Use
Cardiac: Regular Rhythm and S1/S2
GI: Soft, Nontender, Nondistended and Normal Bowel Sounds
Skin: Warm and Dry
Neuro: Awake, Alert, Oriented and AO x 3
Psych: Calm and Intact Judgement/Insight
Data Reviewed
-
Labs: Labs Reviewed by me
[2025-01-11] MEDS: TOPROL XL 50 MG PO ×2 (08:18→12:50)
[2025-01-11] MEDS: TYLENOL 650 MG PO (08:19)
--- NOTE | 2025-01-11 09:04 | CON.CAR ---
Addendum entered and electronically signed by Travis Sarmiento MD 01/11/25 11:07:
I saw and examined the patient.
The [employer]'s note was reviewed and I agree with the note.
Comment:
34 y/o male (patient of Dr. Julien) with RBBB, hypertension, stroke (08/2024), PFO (discovered 08/2024), anxiety, and dyslipidemia who presents with palpitaitons, SOB, and R sided numbness, found to have new AF w RVR, now in NSR after IV Diltiazem.
No EtOH use or fam hx of afib. Exercises regularly. There is concern for NORMAN.
Physical exam: RRR, no m/r/g, no LE edema, clear lungs bilaterally.
CBC, CMP, TSH with no obvious trigger for AF. CT head normal.
TIA vs stroke: Symptoms have resolved. Normal head CT. Neuro to see. Start DOAC for Afib. Consider PFO closure outpatient. Stop DAPT.
Afib: RVR on admission. CHADsVasc 3 (stroke, HTN). If ok with neuro, switch heparin to DOAC. Increase Metop to 100mg daily. Consider ablation outpatient once he has insurance. OP sleep study.
Original Note:
Consultation
Consultation Request
Date/Time Consultation Requested: 01/10/25 263
Date/Time Consultation Performed: 01/11/25 0855
Requesting Provider: Dr. Kirkland
Performing Provider: Iliana SANTANA for Dr. Sarmiento
Reason for Consultation: AFIB
Medical History
-
Chief Complaint: palpitations
History of Present Illness:
34 y/o male (patient of Dr. Julien) with RBBB, hypertension, stroke (08/2024), PFO (discovered 08/2024), anxiety, and dyslipidemia who is here for evaluation after he developed palpitations last night while laying around 8:40 PM. There was associated
SOB. On the way in, he also noted tingling to right face, neck, chest. That part lasted about 1 hour. Otherwise, he had the palpitations about 1 month ago for an hour, but thought it could be anxiety. When he came in, he was seen to be in AFIB with
RVR. IV diltiazem was initiated. Head CT was negative. IV heparin was initiated. He is now in NSR.
Past Medical History
Past Medical History: CVA, HTN, Hypercholesterolemia and Other (as above)
Social History
Tobacco: Non-Smoker
Alcohol: None
Drug: None
Family History
Family History: Other (dad factor 5 leiden)
Allergies / Home Medications
Allergy/AdvReac Type Severity Reaction Status Date / Time
No Known Allergies Allergy Verified 09/16/24 13:47
�Medication �Instructions �Recorded �Confirmed �Type
metoprolol succinate 50 mg 50 mg PO DAILY Heart 09/16/24 01/11/25 History
tablet,extended release 24 hr Disease/Condition
(Toprol XL)
clonazepam 0.5 mg tablet 0.5 mg PO DAILYPRN PRN anxiety 09/17/24 01/11/25 History
aspirin 81 mg tablet,delayed 81 mg PO DAILY #0 tabs 09/19/24 01/11/25 Rx
release
atorvastatin 40 mg tablet 40 mg PO QPM #30 tabs 09/19/24 01/11/25 Rx
clopidogrel 75 mg tablet 75 mg PO DAILY #18 tabs 09/19/24 01/11/25 Rx
Review of Systems
-
History Source: Patient
All other systems: Negative unless noted
Respiratory: Trouble Breathing
Cardiac: Palpitations
Neurological: Other (tingling as noted)
Physical Exam
Vital Signs
Temp Pulse Resp BP Pulse Ox
98.8 F 81 8 121/76 97
01/11/25 07:10 01/11/25 08:18 01/11/25 06:00 01/11/25 08:18 01/11/25 06:00
Lab Results
01/10/25 21:46
01/11/25 04:55
Azb-U-Nktonfwhayn Pept 216 pg/ml 01/11/25 04:55
Physical Exam
General: Well Developed, Well Nourished and No Apparent Distress
HEENT: Normocephalic and Anicteric
Respiratory: Clear and Non Labored Respirations
Cardiac: Regular Rhythm
Musculoskeletal: No Edema
Skin: Warm and Dry
Neuro: AO x 3
Psych: Calm
Impression / Plan
-
AFIB with RVR (new diagnosis), paroxysmal:
-rate significantly elevated in 170's on arrival
-now in SR in 70's
-on IV diltiazem and IV heparin- both of these medications require intensive monitoring
-will plan to increase BB dosing. Would consider ablation as OP, and we discussed this.
-transition to DOAC when able. Eliquis 5 mg PO BID. However, there have been insurance issues and he thinks his won't kick in until March (then could likely use copay card). We will involve CM to help with this. Hopefully can go home on Eliquis 5
mg PO BID, but if unaffordable, can consider dabigatran 150 mg PO BID (with goodrx coupon) to start.
-TSH WNL
-he does snore- needs OP sleep study, which we reviewed
RBBB: chronic and stable
Hx CVA:
-Patient had some facial tingling on arrival. Now resolved. Head CT negative. Neuro consulted.
-on statin. Transition from DAPT to DOAC when able.
PFO:
-w/u with 2 week monitor and heme visit planned as part of w/u consideration for PFO closure, but insurance issues so was unable to start this process. Now with AFIB diagnosis as above with plans for AC.
HTN:
-stable, monitor with med adjustments
HLD:
-on statin
Data:
YANIRA 09/19/24: Normal left ventricular size, thickness, and systolic function. Left ventricular ejection fraction is 55-60%. No significant valve abnormalities. No left atrial appendage thrombus. No spontaneous echo contrast seen in the left atrial
appendage. Patent foramen ovale with evidence of shunt by color flow Doppler. Mildly positive agitated saline contrast bubble study.
Data Reviewed
-
EKG: Tracing Personally Visualized and interpreted (SVT vs AFIB, RBBB)
CT Scan: Report Reviewed by me (No evidence of acute intracranial abnormality.)
Medical Tests (Nuc Med, Echo etc): Report Reviewed by me
Labs: Labs Reviewed by me
--- NOTE | 2025-01-11 10:16 | CON.NEURO4 ---
Consultation - Neurology 4
-
CONSULTING PHYSICIAN: Dr. Clovis Nesbitt
REFERRING PHYSICIAN: Dr. Frantz Hinton
DICTATED BY: Dr. Clovis Nesbitt
DATE/TIME OF REQUEST: 01/11/2025
DATE/TIME OF CONSULTATION: 01/11/2025
Reason for Consultation: Palpitation
ASSESSMENT AND PLAN:
The patient is a 34-year-old male who presented with a complaint of palpitations. He has a history of CVA which was shown on the MRI done on 09/17/2024, however he did not have any residual deficit as per history. Patient reported that he was just
sitting down relaxing when all of a sudden he noticed that his heart was racing and he felt palpitations. He felt some shortness of breath. When he got up he did not feel lightheaded or dizzy but he noticed some numbness to the right side of his
face and also throughout his body.
. The MRI of the brain done on 09/17/2024 showed tiny acute ischemic infarcts in the superior left parietal lobe.
. The CTA of the head and neck which was done on 09/16/2024 did not show a large vessel occlusion.
. CT of the head yesterday did not show acute intracranial abnormality.
The patient has a history of a PFO which was diagnosed in the past as per history and also there is a concern for atrial fibrillation with RVR on this admission.
An echocardiogram was done today which showed a LVEF of 61% and the interatrial septum was not well-visualized, and there was no change compared to the YANIRA done on 09/19/2024 at which time PFO was seen.
Cardiology has seen the patient and recommended anticoagulation for atrial fibrillation and to have the PFO closure done as an outpatient. The plan is to switch intravenous heparin to Eliquis 5 mg twice a day. DAPT has been stopped. The patient
also needs to be on atorvastatin 40 mg daily. The patient does not have any neurologic deficit at this time and the NIH stroke scale is 0.
History of Present Illness:
The patient is a 34-year-old male who presented with a complaint of palpitations. He has a history of CVA which was shown on the MRI done on 09/17/2024, however he did not have any residual deficit as per history. Patient reported that he was just
sitting down relaxing when all of a sudden he noticed that his heart was racing and he felt palpitations. He felt some shortness of breath. When he got up he did not feel lightheaded or dizzy but he noticed some numbness to the right side of his
face and also throughout his body. He denied any nausea. He has no vomiting. He denies having any pain in his chest. Patient reported that he had a similar episode about 5 days ago when he was cooking but did not last as long. He said he has
also felt brief episodes of flutter/palpitations when he was younger but this otherwise has been asymptomatic.
Review of Systems:
The patient denies headache, dizziness, chest pain, shortness of breath, fever, chills, nausea and vomiting.
Neurologic Examination:
The patient is alert and oriented x 3,
Speech is clear,
The cranial nerves II to XII are grossly intact,
The strength is grossly 5/5 bilaterally in upper and lower extremities,
Sensations are grossly intact,
The cerebellar examination did not show limb ataxia.
Vital Signs and Labs
-
Vital Signs and Labs:
Vital Signs
Temp Pulse Resp BP Pulse Ox
36.6 C 75 18 154/89 97
01/11/25 15:45 01/11/25 15:45 01/11/25 15:45 01/11/25 15:45 01/11/25 15:45
Lab Results
01/10/25 21:46
01/11/25 04:55
APTT 48.2 Sec (23.4-35.0) H 01/11/25 11:52
Sodium 136 mmol/L (135-145) 01/11/25 04:55
Potassium 3.9 mmol/L (3.5-5.1) 01/11/25 04:55
BUN 15 mg/dl (9-20) 01/11/25 04:55
Glucose 104 mg/dl (70-99) H 01/11/25 04:55
Calcium 9.4 mg/dl (8.4-10.2) 01/11/25 04:55
Ias-L-Qotaoldoblf Pept 216 pg/ml 01/11/25 04:55
Medications
-
Active Medications
Generic Name Dose Route Start Last Admin
Trade Name Freq PRN Reason Stop Dose Admin
Acetaminophen 650 mg 01/10/25 23:21 01/11/25 08:19
Acetaminophen 325 Mg Tablet PO 02/07/25 23:20 650 mg
Q6HPRN PRN Administration
mild pain/ fever>100.5F
Buspirone HCl 5 mg 01/11/25 16:00 01/11/25 17:22
Buspirone 5 Mg Tablet PO 02/08/25 15:59 5 mg
DAILY KIMBERLY Administration
Clonazepam 0.5 mg 01/10/25 23:21
Clonazepam 0.5 Mg Tablet PO 02/07/25 23:20
DAILYPRN PRN
anxiety
Heparin Sodium 25,000 units in 250 mls @ 0 mls/hr 01/10/25 22:30 01/10/25 22:58
Heparin 52172 Units/250 Ml IV 250 mls
PER PROTOCOL KIMBERLY Administration
Protocol
Per Protocol
Metoprolol Succinate 100 mg 01/12/25 08:00
Metoprolol 100 Mg Extended Release Tablet PO 02/09/25 07:59
DAILY KIMBERLY
Sodium Chloride 0 flush 01/10/25 23:00
Sodium Chloride 0.9% (Flush) Syringe IV 02/07/25 22:59
PER PROTOCOL KIMBERLY
Trimethobenzamide HCl 200 mg 01/10/25 23:29
Trimethobenzamide 200 Mg/2 Ml Vial IM 02/07/25 23:28
Q6HPRN PRN
nausea/vomiting
Home Medications
�Medication �Instructions �Recorded
metoprolol succinate 50 mg 50 mg PO DAILY Heart 09/16/24
tablet,extended release 24 hr Disease/Condition
(Toprol XL)
clonazepam 0.5 mg tablet 0.5 mg PO DAILYPRN PRN anxiety 09/17/24
aspirin 81 mg tablet,delayed 81 mg PO DAILY #0 tabs 09/19/24
release
atorvastatin 40 mg tablet 40 mg PO QPM #30 tabs 09/19/24
clopidogrel 75 mg tablet 75 mg PO DAILY #18 tabs 09/19/24
buspirone 5 mg tablet 5 mg PO DAILY 01/11/25
[2025-01-11 12:19] LABS: APTT 48.2 Sec (23.4-35.0)
--- NOTE | 2025-01-11 12:21 | PTCARENOTE ---
pt awake and alert, NSR on monitor , pt converted from afib at 0650 this am , BP adequate , complaints of reproducible sternal chest pain , he was given Tylenol and effective for pain , he is now ordered a diet , Echo done , pt is now written for
telemetry status , he was seen by neurology , he continues on heparin gtt for now
--- NOTE | 2025-01-11 14:48 | CM ---
Initial assessment completed with patient who lives with his parents and 24 y/o brother in a 2 story split level plus basement home with B/B on upper level, 1/2 bath on lower level, 6 steps to enter. [employer] patient was independent in ADL's and
ambulation, drives. 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 Will have insurance in March. No DME. No in-home services. No HC-POA. No VA benefits. No psychiatric hospitalizations. PCP is Puneet Moore. Pharmacy
is [facility] in [place]. Discharge POC: Home with no needs. Will be on Eliquis. Literature and 30 day coupon explained and provided to patient.
--- NOTE | 2025-01-11 15:40 | PTCARENOTE ---
pt transferred to room 417-2 , report given to receiving RN
[2025-01-11] MEDS: BUSPAR 5 MG PO (17:22)
[2025-01-11] MEDS: HEPARIN 25000 UNITS/250 ML IV (20:03)
[2025-01-11 20:47] LABS: APTT 60.9 Sec (23.4-35.0)
[2025-01-12 03:28] VITALS: BP 114/77
[2025-01-12 04:28] LABS: APTT 68.9 Sec (23.4-35.0)
[2025-01-12 06:00] VITALS: BMI 30.5
[2025-01-12 07:17] VITALS: BP 121/86
--- NOTE | 2025-01-12 08:10 | W.PN.HOSP.TC ---
Today's Communication/Plan
-
DC home today
Assessment / Plan
Assessment / Plan
HPI: 34-year-old M with past medical history significant for multiple small acute ischemic infarcts in the left parietal lobe in August who is now on dual antiplatelet therapy, hypertension and GERD; presented to the emergency room with recurrent
palpitations.
A/P:
# New onset SVT - Suspect Aflutter vs fib
spontaneously converted to NSR
off Cardizem
Cont WHOLESALE DIAMOND BROKER Toprol , increased to 100 mg daily
heparin gtt -> eliquis 5 mg BID ,
Stop WHOLESALE DIAMOND BROKER plavix and ASA with initiation of DOAC
Echo this admission unrevealing: LVEF 61%. No significant valvular disease. Interatrial septum not well-visualized. No change compared to YANIRA on 09/19/2024 at which time PFO was seen.
TSH WNL at 4.2
Appreciate cardiology/neuro input .
# Recent stroke with finding of PFO
continue statin
neurology consulted
DVT PPX - Eliquis
Code status - Full code
Anticipated Discharge: Today
Subjective/Interval History
-
Date of Service: January 12, 2025
Objective Data
-
Labs:
Laboratory Results
01/11/25 01/12/25 01/12/25
20:27 03:14 06:00
WBC Pending
Hgb Pending
Hct Pending
Plt Count Pending
APTT 60.9 H 68.9 H
Sodium Pending
Potassium Pending
Chloride Pending
Carbon Dioxide Pending
BUN Pending
Creatinine Pending
Glucose Pending
Calcium Pending
01/12/25
10:45
WBC
Hgb
Hct
Plt Count
APTT Pending
Sodium
Potassium
Chloride
Carbon Dioxide
BUN
Creatinine
Glucose
Calcium
Vital Signs:
Vital Signs
Temp Pulse Resp BP Pulse Ox
36.6 C 74 16 114/77 97
01/12/25 03:28 01/12/25 03:28 01/12/25 03:28 01/12/25 03:28 01/12/25 03:28
I&O
01/11/25 01/12/25 01/13/25
06:59 06:59 06:59
Intake Total 844 / 844
Balance 844 / 844
Review of Systems
-
History Source: Patient
All other systems: Reviewed and negative
Cardiac: Denies Chest Pain
Physical Exam
-
General: Well Developed, Well Nourished, No Apparent Distress, Comfortable and Conversant; Negative Respiratory Distress
HEENT: Normocephalic, Atraumatic, Nose Appears Normal and Ears Appear Normal; Negative Oxygen
Respiratory: Clear to Auscultation and Non Labored Respirations; Negative Accessory Resp Muscle Use
Cardiac: Regular Rhythm and S1/S2
GI: Soft, Nontender, Nondistended and Normal Bowel Sounds
Skin: Warm and Dry
Neuro: Awake, Alert, Oriented and AO x 3
Psych: Calm and Intact Judgement/Insight
Data Reviewed
-
Medical Tests (Nuc Med, Echo etc): Report Reviewed by me (echo)
Labs: Labs Reviewed by me
[2025-01-12] MEDS: TOPROL XL 100 MG PO (09:09)
[2025-01-12] MEDS: BUSPAR 5 MG PO (09:10)
[2025-01-12] MEDS: ELIQUIS 5 MG PO (09:10)
--- NOTE | 2025-01-12 09:30 | W.PN.CD ---
Today's Communication / Plan
-
Patient spontaneously converted back to sinus rhythm
Continue Toprol XL 100 mg a day
Continue Eliquis 5 mg twice daily.
Patient will follow-up in our office. Will consider EP consultation as an outpatient
Outpatient sleep study
Impression / Plan
-
AFIB with RVR (new diagnosis), paroxysmal:
- CHADSVASC 2 ( h/o CVA)
- spontaneous conversion to NSR
- IV heaprin stopped
- Eliquis 5mg BID
- However, there have been insurance issues and he thinks his won't kick in until March (then could likely use copay card). Case management consult Hopefully can go home on Eliquis 5 mg PO BID.if unaffordable, can consider dabigatran 150 mg PO
BID (with goodrx coupon) to start.
-TSH WNL
-he does snore- needs OP sleep study,
RBBB: chronic and stable
Hx CVA:
-Patient had some facial tingling on arrival. Now resolved. Head CT negative. Neuro consulted.
-on statin for which he was now transitioned to Eliquis with evidence of A-fib
PFO:
-w/u with 2 week monitor and heme visit planned as part of w/u consideration for PFO closure, but insurance issues so declined/delayed this process.
-Now with AFIB diagnosis as above with plans for AC. No plans for PFO closure since patient has presence of A-fib and will require anticoagulation.
HTN:
-stable, monitor with med adjustments
HLD:
-on statin
Data:
YANIRA 09/19/24: Normal left ventricular size, thickness, and systolic function. Left ventricular ejection fraction is 55-60%. No significant valve abnormalities. No left atrial appendage thrombus. No spontaneous echo contrast seen in the left atrial
appendage. Patent foramen ovale with evidence of shunt by color flow Doppler. Mildly positive agitated saline contrast bubble study.
Physical Exam
Vital Signs/Labs
Vital Signs
Temp Pulse Resp BP Pulse Ox
97.8 F 77 16 121/86 98
01/12/25 07:17 01/12/25 09:09 01/12/25 07:17 01/12/25 09:09 01/12/25 07:17
01/11/25 01/12/25 01/13/25
06:59 06:59 06:59
Actual Weight 108 kg 107.683 kg
APTT 68.9 Sec (23.4-35.0) H 01/12/25 03:14
Magnesium 2.1 mg/dl (1.6-2.3) 01/11/25 04:55
TSH 4.20 uIU/ml (0.47-4.68) 01/10/25 21:46
01/11/25
04:55
Hbe-M-Akbhlcvloxk Pept 216
Physical Exam
Constitutional: No acute distress
Cardiovascular: Rhythm & rate is regular
Respiratory: Other (No wheezes rales or rhonchi)
GI: Soft and Non tender
Neuro/Psych: Alert, Oriented and AO x 3
Data Reviewed
-
Date of Service: January 12, 2025
Medical Decision Making: Reviewed Test Results
Echo: Report Reviewed by me
Medical Tests (PFT, Pathology etc): Report Reviewed by me
Labs: Labs Reviewed by me
--- NOTE | 2025-01-12 09:31 | CM ---
D/c home today. No CM needs
Plan: Home, no needs
[2025-01-12 10:50] LABS: Hematocrit 46.9 % (39.0-52.0); Hemoglobin 15.4 g/dL (13.0-18.0); Mean Corp Hgb Conc. 32.8 g/dL (33.0-37.0); Mean Corpuscular Volume 87.7 fL (80.0-94.0); Platelet Count 279 10^3/uL (130-400); Red Cell Dist. Width 12.2 % (11.5-14.5)
--- NOTE | 2025-01-12 12:15 | W.PN.NEURO.1 ---
Addendum entered and electronically signed by Clovis Nesbitt MD 01/12/25 22:26:
I seen the patient today with the nurse practitioner which is currently and I agree with her assessment and the management plan. The following is my addendum.
The patient is a 34-year-old male who presented to [facility] on 01/10/25 with a complaint of palpitations. He has a history of CVA which was shown on the MRI done on 09/17/2024, however he did not have any residual deficit as per history. Patient
reported that he was just sitting down relaxing on 01/10/25 when all of a sudden he noticed that his heart was racing and he felt palpitations. He felt some shortness of breath. When he got up he did not feel lightheaded or dizzy but he noticed
some numbness to the right side of his face and also throughout his body.
. The MRI of the brain done on 09/17/2024 showed tiny acute ischemic infarcts in the superior left parietal lobe.
. The CTA of the head and neck which was done on 09/16/2024 did not show a large vessel occlusion.
. CT of the head did not show acute intracranial abnormality.
The patient has a history of a PFO which was diagnosed in the past as per history and also there is a concern for atrial fibrillation with RVR on this admission.
Echocardiogram 01/11/25 showed a LVEF of 61% and the interatrial septum was not well-visualized, and there was no change compared to the YANIRA done on 09/19/2024 at which time PFO was seen.
I. Left parietal ischemic stroke 08/2024.
II. New onset Afib with RVR.
III. PFO.
Cardiology has seen the patient and recommended anticoagulation for atrial fibrillation and to have the PFO closure done as an outpatient. The patient has started on Eliquis 5 mg twice a day. The patient also needs to be on atorvastatin 40 mg
daily. The patient does not have any neurologic deficit at this time and the NIH stroke scale is 0.
The patient needs hypercoagulability workup as an outpatient. It was discussed with the patient and he verbalized understanding of our discussion.
Follow-up with cardiology as an outpatient.
The patient needs a sleep study as an outpatient to rule out obstructive sleep apnea. He has history of snoring.
Follow-up with neurology as an outpatient.
I had a detailed discussion with the patient regarding assessment and the management plan, and he verbalized understanding of our discussion.
Original Note:
Today's Communication / Plan
-
.
Neuro Assessment/Plan
Assessment
The patient is a 34-year-old male who presented to [facility] on 01/10/25 with a complaint of palpitations. He has a history of CVA which was shown on the MRI done on 09/17/2024, however he did not have any residual deficit as per history. Patient
reported that he was just sitting down relaxing on 01/10/25 when all of a sudden he noticed that his heart was racing and he felt palpitations. He felt some shortness of breath. When he got up he did not feel lightheaded or dizzy but he noticed
some numbness to the right side of his face and also throughout his body.
. The MRI of the brain done on 09/17/2024 showed tiny acute ischemic infarcts in the superior left parietal lobe.
. The CTA of the head and neck which was done on 09/16/2024 did not show a large vessel occlusion.
. CT of the head yesterday did not show acute intracranial abnormality.
The patient has a history of a PFO which was diagnosed in the past as per history and also there is a concern for atrial fibrillation with RVR on this admission.
Echocardiogram 01/11/25 showed a LVEF of 61% and the interatrial septum was not well-visualized, and there was no change compared to the YANIRA done on 09/19/2024 at which time PFO was seen.
I. Left parietal ischemic stroke 08/2024.
II. New onset Afib.
III. PFO.
Plan
-Continue apixaban for stroke prevention in the setting of Afib.
-Goal normotension.
-LDL goal <70. LDL was 160 in 08/2024. Continue atorvastatin 40mg daily.
-Goal normoglycemia.
-Outpatient sleep study for snoring.
-Patient needs outpatient hypercoagulability evaluation as well as an outpatient for thoroughness.
-Follow-up with Neurology as an outpatient.
Subjective/Objective
Subjective Data
Date of Service: January 12, 2025
No acute events overnight.
Objective Data
Vital Signs
Temp Pulse Resp BP Pulse Ox
97.8 F 77 16 121/86 98
01/12/25 07:17 01/12/25 09:09 01/12/25 07:17 01/12/25 09:09 01/12/25 10:17
Lab Results
01/12/25 10:34
APTT Cancelled 01/12/25 10:45
Sodium 136 mmol/L (135-145) 01/11/25 04:55
Potassium 3.9 mmol/L (3.5-5.1) 01/11/25 04:55
BUN 15 mg/dl (9-20) 01/11/25 04:55
Glucose 104 mg/dl (70-99) H 01/11/25 04:55
Calcium 9.4 mg/dl (8.4-10.2) 01/11/25 04:55
Rkk-F-Bcpidtcemva Pept 216 pg/ml 01/11/25 04:55
Patient Allergies
No Known Allergies Allergy (Verified 09/16/24 13:47)
Review of Systems
-
History Source: Patient
EENT: Negative Blurry Vision, Decreased Vision or Swallowing Difficulty
Neuro: Negative Dizzy, Headache, Weakness, Numbness, Ataxia, Tremors or Speech Problem
Physical Exam
-
General: Well Developed, Well Nourished and No Apparent Distress
Eyes: No Ptosis and PERRLA
HEENT: Normocephalic and Atraumatic
Neck: Full Range of Motion
GI: Non-distended
Extremities: No Clubbing, No Cyanosis and No Edema
Extended Neurological Exam
Mood & Affect: Mood Unremarkable and Affect Unremarkable
Attention Span & Concentration: Awake, Alert and Interactive
Memory: Unremarkable and Able to Recall
Tremor: Hand Tremor Absent and Head Tremor Absent
Speech: Quality Unremarkable, Quantity Unremarkable and Rate of Production Unremarkable
Cranial Nerves III, IV, : Extraocular Movement: Extraocular Movement Full in all Directions
Cranial Nerve VII: Facial Symmetry: Normal Facial Symmetry
Cranial Nerve VIII: Hearing: Unremarkable Hearing to Normal Conversational Volume
Muscle Strength, Overall: Full Throughout
Pronator Drift: No Drift in Upper Extremities and No Drift in Lower Extremities
Coordination: Wyuzcz-kfyv-bnpxon Testing Unremarkable
Medications
-
Home Medications
�Medication �Instructions �Recorded
clonazepam 0.5 mg tablet 0.5 mg PO DAILYPRN PRN anxiety 09/17/24
atorvastatin 40 mg tablet 40 mg PO QPM #30 tabs 09/19/24
buspirone 5 mg tablet 5 mg PO DAILY 01/11/25
CBC without diff #1 ea 01/12/25
apixaban 5 mg tablet (Eliquis) 5 mg PO BID #60 tabs 01/12/25
metoprolol succinate 100 mg 100 mg PO DAILY #30 tabs 01/12/25
tablet,extended release 24 hr
--- NOTE | 2025-01-12 12:38 | W.DCSUMMARY ---
Discharge Summary
Discharge Data
Date of Admission: 01/10/25
Date of Discharge: 01/12/25
Total time spent discharging patient (in min): 40
-
Pending Results: No
Hospital Course
Principal Diagnosis:
New onset SVT- suspect Aflutter vs fib, spontaneously converted to NSR
Chronic Diagnoses:�
Recent stroke with finding of PFO
Consultations:�
Cardiology
Neurology
Procedures:�
None
Clinical course:�
This is a 34-year-old male with past medical history as stated above, who presented with palpitation.
Problem 1:
New onset SVT- suspect Aflutter vs fib, spontaneously converted to NSR.
His prior to admission Toprol was increased from 50 mg to 100 mg daily.
He received heparin gtt while in the hospital, and this was changed to Eliquis 5 mg BID which he can continue following discharge.
With the initiation of Eliquis, he has been informed to stop his prior to admission aspirin and Plavix.
His echo this admission was unrevealing: LVEF 61%. No significant valvular disease. Interatrial septum not well-visualized. No change compared to YANIRA on 09/19/2024 at which time PFO was seen.
His TSH level was WNL at 4.2.
As for the rest of his medical problems, they were stable during his hospital stay.
Discharge Plan
-
Patient Disposition: Home (Routine Discharge)
Discharge Diagnosis/Procedures: New onset Atrial flutter vs fibrillation, spontaneously converted to normal sinus rhythm
Condition: Good
Diet: As tolerated, Low Fat and Low Cholesterol
Activity: As tolerated
Driving Restrictions: As prior to admission
Blood Work: CBC in 1 week, result to PCP
Referrals:
Puneet Moore, DO [Family Provider, [facility]] - in less than 1 week
Additional Discharge Medication Instructions: Stop plavix and ASA with initiation of Eliquis
Toprol dose increased to 100 mg daily
Prescriptions:
New
Eliquis 5 mg Tablet
5 mg PO BID Qty: 60 0RF
metoprolol succinate 100 mg Tablet Extended Release 24 Hr
100 mg PO DAILY Qty: 30 0RF
(DME) CBC without diff
See Rx Instructions .Route .MEDSUPPLY Qty: 1 0RF
Rx Instructions:
01/18-01/25, result to PCP
# new onset A fib
Continued
clonazepam 0.5 mg Tablet
0.5 mg PO DAILYPRN PRN (Reason: anxiety)
atorvastatin 40 mg Tablet
40 mg PO QPM Qty: 30 0RF
buspirone 5 mg Tablet
5 mg PO DAILY
Discontinued
metoprolol succinate [Toprol XL] 50 mg Tablet Extended Release 24 Hr
50 mg PO DAILY
clopidogrel 75 mg Tablet
75 mg PO DAILY Qty: 18 0RF
aspirin 81 mg Tablet,Delayed Release (Dr/Ec)
81 mg PO DAILY Qty: 0 0RF
Discharge Orders:
Discharge Patient (As Directed); Ordered 01/12/25
Ordered By: Robyn Hinton
Discharge Date and Time
Discharge Date/Time: 01/12/25 11:11
Print Language: BULGARIAN
[2025-01-12 15:17] LABS: Blood Urea Nitrogen 14 mg/dl (9-20); Calcium 9.8 mg/dl (8.4-10.2); Carbon Dioxide 19 mmol/L (22-30); Chloride 107 mmol/L (98-107); Estimated Creatinine Clearance > 125 ml/min; Glucose 98 mg/dl (70-99); Potassium 4.2 mmol/L (3.5-5.1); Sodium 137 mmol/L (135-145); eGFR > 60.00
== END 2025-01-12 11:11 | disposition home or self-care (01) | DRG 309 ==
LOC: 4 WEST ACU 22:56
PROVIDERS: Internal Medicine; ADMITTING PHYSICIAN Internal Medicine; ATTENDING PHYSICIAN Internal Medicine; CONSULT PHYSICIAN Psychiatry & Neurology Neurology; EMERGENCY PHYSICIAN Emergency Medicine; FAMILY PHYSICIAN Family Medicine; OTHER PHYSICIAN Student in an Organized Health Care Education/Training Program; REFERRING PHYSICIAN Internal Medicine Cardiovascular Disease
DX: I48.0 Paroxysmal atrial fibrillation (principal); Q21.12 Patent foramen ovale; I48.92 Unspecified atrial flutter; I47.10 Supraventricular tachycardia, unspecified; Z86.73 Personal history of transient ischemic attack (TIA), and cerebral infarction without residual deficits; K21.9 Gastro-esophageal reflux disease without esophagitis; I10 Essential (primary) hypertension; I45.10 Unspecified right bundle-branch block; E78.00 Pure hypercholesterolemia, unspecified; F41.9 Anxiety disorder, unspecified; Z79.02 Long term (current) use of antithrombotics/antiplatelets; Z79.82 Long term (current) use of aspirin; Z79.899 Other long term (current) drug therapy; Z83.2 Family history of diseases of the blood and blood-forming organs and certain disorders involving the immune mechanism
CPT/HCPCS: 70450; 80048; 80053; 83735; 83880; 84443; 85025; 85027; 85730; 93005; 93306; 96365; 96366; 96367; 99291